=== PATIENT | female | born 1980 | race Caucasian/White ===

== ENCOUNTER 2022-03-20 12:42 | Emergency (ER) | payer MEDICAID, SELFPAY ==
--- NOTE | ~2022-03-20 | CT_ITS ---
EXAMINATION: CT ABDOMEN AND PELVIS WITHOUT CONTRAST CLINICAL INFORMATION: Left lower quadrant abdominal pain COMPARISON: None. TECHNIQUE: Multidetector volumetric imaging was performed from the lung bases through the pubic symphysis. Sagittal and coronal reformatted images were obtained on the technologist workstation. This CT examination was performed using dose optimization techniques as appropriate, variously including the following: *Automated exposure control *Adjustment of mA and/or kV according to patient size (this includes techniques or standardized protocols for targeted exams where dose is matched to indication/reason for exam; i.e. extremities or head) *Use of iterative reconstruction technique FINDINGS: The lack of intravenous contrast limits evaluation of the solid visceral organs including the liver, spleen, pancreas, and kidneys. LUNG BASES: The visualized lung bases are unremarkable. LIVER, GALLBLADDER, AND BILIARY TREE: Limited non-contrast evaluation is normal. 8mm likely cyst in the right lobe of liver image 11/84. Nonspecific 7 mm low-density lesion in the right lobe of liver image 114/697. Normal liver size and contour. No gross biliary ductal dilation. The gallbladder is unremarkable with no evidence of radiopaque gallstones, gallbladder wall thickening, or obvious pericholecystic inflammatory changes. PANCREAS: Limited non-contrast evaluation is normal. No teddy-pancreatic fluid. SPLEEN: Limited non-contrast evaluation is normal. ADRENAL GLANDS: Normal; no adrenal mass. KIDNEYS AND URETERS: Limited non-contrast evaluation is normal. No hydronephrosis, hydroureter, or calculi seen. No perinephric stranding. GASTROINTESTINAL TRACT: Stomach and small bowel are nondilated. The appendix is not seen but there are no right lower quadrant inflammatory changes. Scattered colonic diverticulosis. No evidence of colitis or diverticulitis. ABDOMINAL WALL: Small fat-containing umbilical hernia. LYMPH NODES: No pathologically enlarged lymph nodes in the abdomen or pelvis. VASCULAR: Normal caliber abdominal aorta. BLADDER: Unremarkable. PELVIC VISCERA: Normal noncontrast appearance of the uterus and ovaries. OSSEOUS STRUCTURES: No acute or suspicious osseous abnormalities. CT/CT abdomen pelvis wo con IMPRESSION: No acute CT findings. No evidence of colitis or diverticulitis. No evidence of obstructive uropathy. Nonspecific subcentimeter low-density lesions in the liver. In the absence of a history of known primary malignancy or hepatic risk factors/liver disease, typically no follow-up is recommended.
[2022-03-20 14:48] VITALS: BP 128/75; PULSE 70; RESP 16; TEMP 37.1; O2SAT 100; BMI 27.0
[2022-03-20 15:05] LABS: MANUAL DIFF FLAG NO
[2022-03-20 15:06] LABS: Basophils Percent Auto 0.3 % (0-2); Eosinophils Percent Auto 0.4 % (0-4); Hematocrit 39.4 % (37.0-47.0); Hemoglobin 12.9 g/dl (12.0-16.0); Imm Gran Abs Auto 0.01 X10*3/uL (0.00-0.03); Imm Gran Pct Auto 0.1 % (0.0-0.4); Lymphocytes Absolute Auto 1.4 X10*3/uL (1.2-4.9); Lymphocytes Percent Auto 21.2 % (20-40); Mean Corpuscular HGB Conc 32.7 g/dl (31.0-35.0); Mean Corpuscular Hemoglobin 28.3 pg (27.0-33.0); Mean Corpuscular Volume 86.4 fL (80.0-98.0); Mean Platelet Volume 9.2 fL (9.4-12.3); Monocytes Absolute Auto 0.4 X10*3/uL (0.1-1.2); Monocytes Percent Auto 5.2 % (2-11); Neutrophils Absolute Auto 4.9 x10*3/uL (2.0-8.3); Neutrophils Percent Auto 72.8 % (45-73); Platelet Count 255 X10*3/uL (160-400); Red Blood Count 4.56 X10*6/uL (4.20-5.50); Red Cell Distribution Width 13.4 % (11.0-16.0); White Blood Count 6.7 X10*3/uL (4.8-10.8)
[2022-03-20 15:25] LABS: Alanine Aminotransferase 11 U/L (0-31); Albumin Level 4.3 g/dL (3.5-5.0); Alkaline Phosphatase 51 U/L (39-117); Anion Gap 11 (12-20); Aspartate Amino Transferase 15 U/L (5-31); Bilirubin Direct 0.2 mg/dL (0.0-0.5); Bilirubin Total 0.6 mg/dL (0.0-1.0); Blood Urea Nitrogen 10 mg/dL (9-16); Calcium 9.2 mg/dL (8.4-10.2); Carbon Dioxide 25 mmol/L (22-29); Chloride 108 mmol/L (96-108); Creatinine Clr Calc Pharmacy 98.5; Estimated Glomerular Filt Rate > 60; Glucose Random 89 mg/dL (60-115); Lipase 15 U/L (8-78); Sodium 140 mmol/L (135-145); Total Protein 7.2 g/dL (6.5-8.0)
[2022-03-20 15:31] LABS: HCG Quantitative < 2 mIU/mL
--- NOTE | 2022-03-20 17:18 | ED_ITS ---
HPI - Abdominal Pain General Chief Complaint: Abdominal Pain Stated Complaint: abd pain Time Seen by Provider: 03/20/22 14:47 Source: patient Mode of arrival: ambulatory Limitations: no limitations History of Present Illness HPI narrative: 41-year-old female presents with nausea, vomiting, and left lower quadrant a bdominal pain for the past 3 days. Does not report to be constipated, or have had any fevers or chills. States that the pain started 1st and then the nausea and vomiting. She does not report any abnormal vaginal bleeding or discharge, denies dysuria, and flank pain. MD elicited complaint: abdominal pain Pertinent past history: none Onset (ago): day(s) (3) Pain Consistency: constant Location: LLQ Severity: moderate Pain scale (0-10): 7 Quality: stabbing and aching Radiation: none Migration to: no migration Exacerbating factors: bowel movement and movement Relieving factors: nothing Associated symptoms: nausea and vomiting Related Data Allergies Allergy/AdvReac Type Severity Reaction Status Date / Time No Known Allergies Allergy Unverified 06/03/20 15:56 Review of Systems Review of Systems Constitutional: No Fever, No Chills ENT/Mouth: No Ear Pain, No Hoarseness, No sore throat Eyes: No Eye Pain, No Swelling, No Redness, No Foreign Body Cardiovascular: No Chest Pain, No SOB Respiratory: No Cough, No Dyspnea Gastrointestinal: Phos Nausea, positive Vomiting, No Diarrhea, positive right lower quadrant abdominal Pain Genitourinary: No Dysuria, No Hematuria Musculoskeletal: No joint pain, No Myalgias, No Joint Swelling Skin: No Skin lacerations, No rash Neuro: No Weakness, No Numbness, No Paresthesias, No Loss of Consciousness, No Dizziness, No Headache Psych: No Anxiety/Panic, No Depression Heme/Lymph: no easy bruising, no Lymphadenopathy Endocrine: No Polyuria, No Polydipsia Yes all other systems are reviewed and are negative [facility] Past Medical History Attestation statement: The following information was validated with the patient. Source: old records reviewed Social History Social History Advance Directives: No Advance Directives Information Provided: No Physical Exam ED Vital Signs: Vital Signs - 24 hr 03/20/22 14:48 03/20/22 17:22 03/20/22 17:48 Temperature 98.8 F 98.2 F Pulse Rate 70 66 72 Respiratory Rate 16 16 16 Blood Pressure 128/75 133/71 128/63 Pulse Oximetry 100 100 100 Oxygen Delivery Method Room Air Room Air Room Air BMI result Body Mass Index 27.0 Appearance: Alert. Oriented X3. Moderate distress. Eyes: Pupils equal, round and reactive to light. Sclera nonicteric. ENT: Pharynx normal. Neck: Normal inspection. Neck supple. CVS: Normal heart rate and rhythm. Pulses normal. Respiratory: No respiratory distress. Breath sounds normal. Abdomen: Soft and left lower quadrant tenderness, no rebound or rigidity. Skin: Skin warm and dry. Normal skin color. Normal skin turgor. Extremities: No lower extremity edema. Gait well-balanced well coordinated. Neuro: No motor deficit. No sensory deficit. Cranial nerves 2-12 intact. Course Course Course Narrative: 41-year-old female presents for 3 days of abdominal pain followed by nausea and vomiting. Has a history of appendectomy. Does not report constipation, fevers or chills. Does have some tenderness to the left lower quadrant on palpation without rigidity or rebound. Afebrile, appears nontoxic. Lab values are unremarkable. Will order CT scan of abdomen pelvis. CT scan abdomen pelvis negative for acute findings. Incidental finding of liver low-density lesion. Patient does understand that she must follow-up with [facility] physician regarding this finding. Patient verbalized understanding of and agrees to plan of care discharge home. Verbalized understanding of signs and symptoms indicating need for emergent intervention. MDM - Abdominal Pain Differential Diagnosis Differential diagnosis: Likely abdominal pain, bowel perforation, calculus of kidney, constipation, diverticulitis, ovarian cyst and pancreatitis Medical Records Attestation: I reviewed the patient's medical records. Lab Data Attestation: I reviewed the patient's lab results. Result diagrams: 03/20/22 15:00 03/20/22 15:00 Labs: Lab Results 03/20/22 03/20/22 03/20/22 Range/Units 15:00 15:00 17:40 WBC 6.7 (4.8-10.8) X10*3/uL RBC 4.56 (4.20-5.50) X10*6/uL Hgb 12.9 (12.0-16.0) g/dl Hct 39.4 (37.0-47.0) % MCV 86.4 (80.0-98.0) fL MCH 28.3 (27.0-33.0) pg MCHC 32.7 (31.0-35.0) g/dl RDW 13.4 (11.0-16.0) % Plt Count 255 (160-400) X10*3/uL MPV 9.2 L (9.4-12.3) fL Immature Gran % (Auto) 0.1 (0.0-0.4) % Neut % (Auto) 72.8 (45-73) % Lymph % (Auto) 21.2 (20-40) % [place] % (Auto) 5.2 (2-11) % Eos % (Auto) 0.4 (0-4) % Baso % (Auto) 0.3 (0-2) % Lymph # (Auto) 1.4 (1.2-4.9) X10*3/uL [place] # (Auto) 0.4 (0.1-1.2) X10*3/uL Eos # (Auto) 0.0 (0.0-0.4) X10*3/uL Baso # (Auto) 0.0 (0.0-0.2) X10*3/uL Abs Immat Gran (auto) 0.01 (0.00-0.03) X10*3/uL Absolute Neuts (auto) 4.9 (2.0-8.3) x10*3/uL Absolute Nucleated RBC 0.000 (0.0-0.012) X10*3/uL Nucleated RBC % (auto) 0.0 (0.0-0.2) /100WBC Sodium 140 (135-145) mmol/L Potassium 4.0 (3.3-5.1) mmol/L Chloride 108 (96-108) mmol/L Carbon Dioxide 25 (22-29) mmol/L Anion Gap 11 L (12-20) BUN 10 (9-16) mg/dL Creatinine 0.79 (0.5-1.4) mg/dL Estim Creat Clear Calc 98.5 Estimated GFR > 60 Random Glucose 89 (60-115) mg/dL Calcium 9.2 (8.4-10.2) mg/dL Total Bilirubin 0.6 (0.0-1.0) mg/dL Direct Bilirubin 0.2 (0.0-0.5) mg/dL AST 15 (5-31) U/L ALT 11 (0-31) U/L Alkaline Phosphatase 51 (39-117) U/L Total Protein 7.2 (6.5-8.0) g/dL Albumin 4.3 (3.5-5.0) g/dL Lipase 15 (8-78) U/L Beta HCG, Quant < 2 mIU/mL Urine Color YELLOW Urine Appearance CLEAR Urine pH 6.0 (5.0-8.0) Ur Specific [place] >= 1.030 H (1.005-1.025) Urine Protein NEG (NEG-TRACE) MG/DL Urine Glucose (UA) NEG (NEG) MG/DL Urine Ketones >=80 (NEG) MG/DL Urine Blood NEG (NEG) Urine Nitrite NEG (NEG) Ur Leukocyte Esterase NEG (NEG) Imaging Data CT abdomen pelvis: Attestation: I personally reviewed and interpreted this imaging study as follows: Radiologist's impression: EXAMINATION: CT ABDOMEN AND PELVIS WITHOUT CONTRAST? CLINICAL INFORMATION: Left lower quadrant abdominal pain COMPARISON: None.? TECHNIQUE: Multidetector volumetric imaging was performed from the lung bases through the pubic symphysis.? Sagittal and coronal reformatted images were obtained on the technologist workstation. This CT examination was performed using dose optimization techniques as appropriate, variously including the following: *Automated exposure control *Adjustment of mA and/or kV according to patient size (this includes techniques or standardized protocols for targeted exams where dose is matched to indication/reason for exam; i.e. extremities or head) *Use of iterative reconstruction technique FINDINGS: The lack of intravenous contrast limits evaluation of the solid visceral organs including the liver, spleen, pancreas, and kidneys. LUNG BASES: The visualized lung bases are unremarkable.? LIVER, GALLBLADDER, AND BILIARY TREE: Limited non-contrast evaluation is normal. 8mm likely cyst in the right lobe of liver image 11/84. Nonspecific 7 mm low-density lesion in the right lobe of liver image 114/697. Normal liver size and contour.? No gross biliary ductal dilation. The gallbladder is unremarkable with no evidence of radiopaque gallstones, gallbladder wall thickening, or obvious pericholecystic inflammatory changes.? PANCREAS: Limited non-contrast evaluation is normal.? No teddy-pancreatic fluid.? SPLEEN: Limited non-contrast evaluation is normal. ? ADRENAL GLANDS: Normal; no adrenal mass.? KIDNEYS AND URETERS: Limited non-contrast evaluation is normal. No hydronephrosis, hydroureter, or calculi seen. No perinephric stranding. ? GASTROINTESTINAL TRACT: Stomach and small bowel are nondilated. The appendix is not seen but there are no right lower quadrant inflammatory changes. Scattered colonic diverticulosis. No evidence of colitis or diverticulitis.? ABDOMINAL WALL: Small fat-containing umbilical hernia.? LYMPH NODES: No pathologically enlarged lymph nodes in the abdomen or pelvis. VASCULAR: Normal caliber abdominal aorta. BLADDER: Unremarkable.? PELVIC VISCERA: Normal noncontrast appearance of the uterus and ovaries.? OSSEOUS STRUCTURES: No acute or suspicious osseous abnormalities.? CT/CT abdomen pelvis wo con IMPRESSION: No acute CT findings. No evidence of colitis or diverticulitis. No evidence of obstructive uropathy.? ? Nonspecific subcentimeter low-density lesions in the liver. In the absence of a history of known primary malignancy or hepatic risk factors/liver disease, typically no follow-up is recommended. Discharge Plan Discharge Clinical Impression: Abdominal pain Patient Disposition: Home, Self-Care Instructions: Abdominal Pain (ED) Additional Instructions: You were evaluated for left lower quadrant abdominal pain. CT scan of abdomen pelvis is negative for acute findings requiring emergent intervention. Incidental findings on the CT is a very small low density area in the liver. This finding is benign but needs follow-up in the future. Your lab values were normal. Your test is negative. Follow-up with primary care physician as needed Thank you for choosing this emergency department for evaluation. Please follow-up with primary care physician as needed. Return to the emergency department for any new, concerning, or worsening symptoms. Interventions: ED Discharge Assessment Last Done: 03/20/22 19:33 Discharge Date/Time: 03/20/22 19:34
[2022-03-20 17:22] VITALS: BP 133/71; PULSE 66; RESP 16; TEMP 36.8; O2SAT 100
[2022-03-20 17:48] VITALS: BP 128/63; PULSE 72; RESP 16; O2SAT 100
[2022-03-20 17:54] LABS: Appearance Urine CLEAR; Color Urine YELLOW; Glucose Urine UA NEG (NEG); Leukocyte Esterase Urine NEG (NEG); Nitrite Urine NEG (NEG); Specific Gravity - Urine >= 1.030 (1.005-1.025); Urine Blood NEG (NEG); Urine Ketones >=80 MG/DL (NEG); Urine Protein NEG (NEG-TRACE)
== END 2022-03-20 19:34 | disposition home or self-care (01) ==
PROVIDERS: Emergency Medicine; Emergency Provider Internal Medicine
DX: R10.32 Left lower quadrant pain (principal); R11.2 Nausea with vomiting, unspecified
CPT/HCPCS: 36415; 74176; 80048; 80076; 81003; 83690; 84702; 85025; 99284

== ENCOUNTER 2023-05-03 08:51 | Outpatient (AMB) | payer BC, MEDICAID, SELFPAY ==
[2023-05-03 09:04] VITALS: BP 118/76; PULSE 88; O2SAT 98; BMI 25.7
--- NOTE | 2023-05-03 09:04 | MHC.PC.OV ---
Vital Signs 05/03/23 09:04 Height 5 ft 6 in Weight 159 lb BMI 25.7 BP 118/76 Blood Pressure Location Lt brachial Position Sitting Pulse 88 Pulse Source Pulse Oximeter Pulse Oximetry (%) 98 Oxygen Delivery Method Room Air Intake Visit Reasons: New patient-requesting physical Allergies No Known Allergies Allergy (Verified 05/03/23 09:15) Medication List - Last Reconciled 05/03/23 by MAXIMILIAN Etienne No Known Home Meds Tobacco use date assessed: 05/03/23 Dental Screening Dental Screen Date: 05/03/23 Did you have a dental visit in the last 12 months?: No Did you have a dental problem in the last 6 months where you did not have access to dental care?: No Was dental information given to patient?: No HPI HPI Comments History of Present Illness Details 42-year-old female new patient presents today to establish care. Past medical history significant for asthma. Patient reports does not require use of albuterol inhaler frequently, typically only uses it when she has viral infection. Refill sent on albuterol inhaler. Patient denies chest pain, palpitations, shortness of breath and syncope. Patient scoring positive on PHQ-9 and richardson 7 for mild anxiety and depression. Patient not currently following with counselor, declined the need for counselor at this time. Denies SI/HI Denies any acute concerns. Mammogram ordered. Eye exam recommended unknown when last papsmear, referral entered to obgyn. TDAP: Given in office today. [facility] Surgical History (Updated 05/03/23 @ 09:17 by MAXIMILIAN Etienne) H/O right inguinal hernia repair History of appendectomy Family History (Updated 05/03/23 @ 09:17 by MAXIMILIAN Etienne) Mother Diabetes Seizure disorder Son No problems noted. Son Autism Daughter No problems noted. Brother No problems noted. Social History (Updated 05/03/23 @ 09:18 by MAXIMILIAN Etienne) Household Members: Family Housing: Apartment Alcohol intake: current Alcohol intake frequency: a few times a week Alcohol type: wine Patient Tobacco Use Status: Never used Tobacco e-Cigarette/Vaping Use: Never Used Second Hand Smoke Exposure: No Current occupational status: employed Cognitive needs: No Hearing needs: No Vision needs: No Female Reproductive History Menstrual Age of Menarche: 13 Questionnaire PHQ-9 Over the last 2 weeks, how often have you been bothered by any of the following problems? 1. Little interest or pleasure in doing things: more than half the days 2. Feeling down, depressed, or hopeless: more than half the days 3. Trouble falling or staying asleep, or sleeping too much: more than half the days 4. Feeling tired or having little energy: more than half the days 5. Poor appetite or overeating: not at all 6. Feeling bad about yourself - or that you are a failure or have let yourself or your family down: more than half the days 7. Trouble concentrating on things, such as reading the newspaper or watching television: not at all 8. Moving or speaking so slowly that other people could have noticed. Or the opposite - being so fidgety or restless that you have been moving around a lot more than usual: not at all 9. Thoughts that you would be better off or of hurting yourself in some way: not at all Total score: 10 Depression Screening Interpretation: Positive [id number] - PHQ-9 Billing: Yes Source: Developed by Drs. Trevin Winchester, Rani Marcial, Galdino Hughes and colleagues, with an educational naina from [employer]. Thrive Questionnaire Date Thrive assessed: 05/03/23 I am a: Patient What is your living situation today?: I have a steady place to live Within the past 12 months, did the food you bought not last and you didn't have the money to get more?: Never true Within the past 12 months, did you worry whether your food would run out before you got money to buy more?: Never true Do you have trouble paying for medicines?: No Do you have trouble getting transportation to medical appointments?: No Do you have trouble paying your heating and electricity bill?: No Do you have trouble taking care of your child, family member or friend?: No Do you have trouble with day-to-day activities such as bathing, preparing meals, shopping, managing finances, etc.?: No Are you currently unemployed and looking for a job?: No Are you interested in more education?: No Currently or been in a relationship where the following occur: no concerns reported AUDIT C Alcohol Use Questionnaire (AUDIT-C) 1. How often do you have a drink containing alcohol?: 2-3 times a week 2. How many drinks containing alcohol do you have on a typical day when you are drinking?: 1 or 2 3. How often do you have six or more drinks on one occasion?: Never Total Score: 3 RICHARDSON-7 AMB Questionnaire RICHARDSON-7 Date RICHARDSON - 7 assessed: 05/03/23 Feeling nervous, anxious, or on edge: 1 = Several days Not being able to stop or control worryin = Several days Worrying too much about different things: 1 = Several days Trouble relaxin = Several days Being so restless that it is hard to sit still: 1 = Several days Becoming easily annoyed or irritable: 1 = Several days Feeling afraid as if something awful might happen: 1 = Several days Total RICHARDSON-7 score (0-4 normal; 5-9 mild; 10-14 moderate; 15-21 severe): 7 Source: Developed by Drs. Trevin Winchester, Rani Marcial, Galdino Hughes and colleagues, with an educational naina from [employer]. RICHARDSON-7 Assessment Billing RICHARDSON-7 Assessment Tool: RICHARDSON-7 Assessment [id number] Review of Systems Const Denies chills, Denies fatigue, Denies fever(s) and Denies poor appetite Eyes Denies no additional complaints ENT Reports Normal hearing present Card Denies chest pain, Denies syncope, Denies rapid heart rate and Denies dyspnea Resp Denies cough and Denies dyspnea GI Denies change in stool character, Denies constipation, Denies diarrhea, Denies nausea and Denies vomiting Denies urinary frequency, Denies dysuria and Denies urinary urgency Neuro Reports Normal hearing present, Denies confusion and Denies syncope Psych Denies confusion Endo Denies fatigue Physical exam (Primary Care) Vital Signs: Last Vital Signs Pulse 88 05/03/23 09:04 BP 118/76 05/03/23 09:04 Pulse Ox 98 05/03/23 09:04 Oxygen Delivery Method Room Air 05/03/23 09:04 BMI result Body Mass Index 25.7 Tobacco/Smoking Status: Tobacco use Status Tobacco use date assessed 05/03/23 05/03/23 09:10 Patient Tobacco Use Status Never used Tobacco 05/03/23 09:18 e-Cigarette/Vaping Use Never Used 05/03/23 09:18 PHQ-9: PHQ-9 Score PHQ-9: Total score 10 05/03/23 09:47 Depression Screening Interpretation: Positive Thrive Assessment: Date of Thrive Assessment Date Thrive assessed 05/03/23 05/03/23 09:10 Currently or been in a relationship where the following occur: no concerns reported Const General: No confusion Orientation/consciousness: No confusion HENMT Head: Yes normocephalic and Yes atraumatic Ears: external ears normal and TM's normal bilaterally General nose exam: Normal external nose present and Normal nasal mucous membranes and turbinates present Face and sinus: Yes normal facial exam and Yes sinuses nontender Mouth: moist mucous membranes Throat: Yes tonsils normal Eyes Conjunctivae: conjunctivae normal Sclerae: sclerae normal Pupils: Equal, round and reactive pupils present and Pupils normal by confrontation EOM: EOMs intact bilaterally Direct Ophthalmoscopy: normal light reflex Neck Neck: Yes no lymphadenopathy and Yes supple Thyroid: Thyroid normal Chest Chest palpation & inspection: normal inspection of the chest Resp Effort & Inspection: normal respiratory effort Auscultation: clear to auscultation bilaterally, no crackles, no rhonchi and no wheezes Cardio Rate: regular rate Rhythm: regular rhythm Peripheral pulses: radial pulses present and dorsalis pedis present GI Inspection: Yes normal to inspection Palpation (GI): Soft to palpation, nontender and No hepatosplenomegaly present Auscultation: normoactive bowel sounds Skin General skin exam: no rashes or lesions noted Neuro General: No confusion Cranial nerves: Yes Equal, round and reactive pupils present and Yes Normal hearing present Cognition (Neuro): normal cognition Gait exam (Neuro): Normal gait present Motor exam (neuro): 5/5 motor strength present throughout Deep tendon reflexes (DTR's): Right brachioradialis reflex intensity grade: 2+, Left brachioradialis reflex intensity grade: 2+, Right patellar reflex intensity grade: 2+ and Left patellar reflex intensity grade: 2+ Extrem General: No edema Immunizations Boostrix Tdap Performing Provider: MAXIMILIAN Etienne Administered by: Ada Jang RN on 05/03/23 09:52 Dose Route Admin Location Lot Number Expiration Date [place] [employer] Install[employer] Supervisor 0.5 mL IM Left Deltoid [id number] 06/27/25 [id number] [employer] VIS Given Date VIS Provided VIS Publication Date 05/03/23 Single Vaccine 21 Eligibility Eligibility Date Funding Source Not [facility] Eligible 05/03/23 Private Assessment and Plan Assessment & Plan (1) Asthma: Code(s): J45.909 - Unspecified asthma, uncomplicated Plan: Continue to use albuterol as needed. (2) Physical exam, annual: Code(s): Z00.00 - Encounter for general adult medical examination without abnormal findings (3) Anxiety and depression: Code(s): F41.9 - Anxiety disorder, unspecified; F32.A - Depression, unspecified Plan: Declined counselor referral. Plan Follow up in 1 year. Orders: Orders Comprehensive [place]. Panel Fast Today Z13.1 - Encounter for screening for diabetes mellitus Lipid Panel Today Z13.220 - Encounter for screening for lipoid disorders TSH reflex Free T4 Today Z13.29 - Encounter for screening for other suspected endocrine disorder Vitamin D 25-OH Total Today Z13.21 - Encounter for screening for nutritional disorder Complete Blood Count Auto Diff Today Z13.0 - Encounter for screening for diseases of the blood and blood-forming organs and certain disorders involving the immune mechanism MM screening mammo BI Today Z12.31 - Encounter for screening mammogram for malignant neoplasm of breast T Spot TB Today Z11.1 - Encounter for screening for respiratory tuberculosis TDaP Immunization Today Z23 - Encounter for immunization Referrals [facility] Referral Z12.4 - Encounter for screening for malignant neoplasm of cervix Medications: New albuterol sulfate 90 mcg/actuation 2 puffs inhalation Q4-6H PRN 6.7 grams 0RF shortness of breath or wheezing J45.909 - Unspecified asthma, uncomplicated Coding Level of Care Code New Pt Prev Care 40-64y(26962) Diagnoses Asthma J45.909 Physical exam, annual Z00.00 Anxiety and depression F41.9; F32.A Additional Codes RICHARDSON-7 Assessment Billing - RICHARDSON-7 Assessment Tool: RICHARDSON-7 Assessment [id number] ([id number])
== END 2023-05-03 09:44 | disposition home or self-care (01) ==
PROVIDERS: Visit Provider Nurse Practitioner Family
DX: Z00.00 Encounter for general adult medical examination without abnormal findings (principal); J45.909 Unspecified asthma, uncomplicated; F41.9 Anxiety disorder, unspecified; F32.A Depression, unspecified
CPT/HCPCS: 90471; 90715; 99386

== ENCOUNTER 2023-05-04 07:13 | Outpatient (REF) | payer BC, MEDICAID, SELFPAY ==
[2023-05-04 07:22] LABS: MANUAL DIFF FLAG NO
[2023-05-04 08:11] LABS: Basophils Percent Auto 0.6 % (0-2); Eosinophils Absolute Auto 0.1 X10*3/uL (0.0-0.4); Eosinophils Percent Auto 1.7 % (0-4); Hematocrit 37.1 % (37.0-47.0); Imm Gran Abs Auto 0.02 X10*3/uL (0.00-0.03); Imm Gran Pct Auto 0.3 % (0.0-0.4); Lymphocytes Absolute Auto 2.3 X10*3/uL (1.2-4.9); Lymphocytes Percent Auto 32.1 % (20-40); Mean Corpuscular HGB Conc 32.3 g/dl (31.0-35.0); Mean Corpuscular Hemoglobin 26.8 pg (27.0-33.0); Mean Corpuscular Volume 82.8 fL (80.0-98.0); Mean Platelet Volume 9.8 fL (9.4-12.3); Monocytes Absolute Auto 0.5 X10*3/uL (0.1-1.2); Monocytes Percent Auto 6.4 % (2-11); Neutrophils Absolute Auto 4.2 x10*3/uL (2.0-8.3); Neutrophils Percent Auto 58.9 % (45-73); Platelet Count 274 X10*3/uL (160-400); Red Blood Count 4.48 X10*6/uL (4.20-5.50); White Blood Count 7.1 X10*3/uL (4.8-10.8)
[2023-05-04 08:47] LABS: Alanine Aminotransferase 8 U/L (0-31); Albumin Level 4.1 g/dL (3.5-5.0); Alkaline Phosphatase 49 U/L (39-117); Anion Gap 11 (12-20); Aspartate Amino Transferase 11 U/L (5-31); Bilirubin Total 0.5 mg/dL (0.0-1.0); Blood Urea Nitrogen 13 mg/dL (9-16); Calcium 9.6 mg/dL (8.4-10.2); Carbon Dioxide 23 mmol/L (22-29); Chloride 110 mmol/L (96-108); Cholesterol 192 mg/dL; Estimated Glomerular Filt Rate > 60; Glucose Fasting 91 mg/dL (60-99); HDL Cholesterol 54 mg/dL; LDL Cholesterol Calculated 120 mg/dl; Potassium 3.9 mmol/L (3.3-5.1); Sodium 140 mmol/L (135-145); Total Protein 7.2 g/dL (6.5-8.0); Triglycerides 90 mg/dL
[2023-05-04 09:05] LABS: TSH reflex Free T4 1.49 uIU/mL (0.32-4.0); Vitamin D 25-OH Total 14.6 ng/mL (>30)
[2023-05-07 16:48] LABS: TS Negative Control Passed; TS Panel A 0; TS Panel B 0; TS Positive Control Passed; TSpotTB Negative (Negative)
== END 2023-05-04 07:14 | disposition home or self-care (01) ==
LOC: HO.LAB 07:13
PROVIDERS: PCP Nurse Practitioner Family; Visit Provider Nurse Practitioner Family
DX: Z13.220 Encounter for screening for lipoid disorders (principal); Z13.29 Encounter for screening for other suspected endocrine disorder; Z13.21 Encounter for screening for nutritional disorder; Z13.0 Encounter for screening for diseases of the blood and blood-forming organs and certain disorders involving the immune mechanism; Z11.1 Encounter for screening for respiratory tuberculosis; F41.9 Anxiety disorder, unspecified; F32.A Depression, unspecified
CPT/HCPCS: 36415; 80053; 80061; 82306; 84443; 85025; 86481

== ENCOUNTER 2023-06-05 09:07 | Outpatient (REF) | payer BC, MEDICAID, SELFPAY ==
--- NOTE | ~2023-06-05 | MM_ITS ---
EXAMINATION: MM SCREENING DIGITAL BREAST TOMOSYNTHESIS, BILATERAL CLINICAL INFORMATION: Screening. Asymptomatic. COMPARISON: Mammography: This is a baseline study. TECHNIQUE: Digital breast tomosynthesis is performed in both the craniocaudal and mediolateral oblique views along with computer-aided detection (CAD). Synthesized 2D images are generated from the tomosynthesis. FINDINGS: The breasts are extremely dense, which lowers the sensitivity of mammography (ACR BI-RADS breast composition Category d). There are no abnormal calcifications or areas of architectural distortion. There are bilateral focal asymmetries. These manifests as dense macro nodularity in the 12:00 region of the left breast and most of the upper outer quadrant of the right breast. Additional imaging with diagnostic mammography and ultrasound is advised. Faint milk of calcium is present in the superior aspect of the right breast. This is benign. MM/MM tomosynthesis screening BI IMPRESSION: Bilateral focal asymmetries warranting additional mammographic and targeted sonographic evaluation. ASSESSMENT: BI-RADS BI-RADS 0 - Incomplete: Needs additional Imaging. RECOMMENDATION: 1. Additional views of both breasts. 2. Targeted ultrasound if warranted after review of the additional views. 3. Radiology department staff will contact the patient for additional imaging. Additional Imaging required This examination should not preclude the clinical evaluation of a suspicious palpable abnormality. This patient's information was entered into a reminder system with a target due date for their next mammogram.
== END 2023-06-05 09:08 | disposition home or self-care (01) ==
LOC: HO.MAMMO 09:07
PROVIDERS: PCP Nurse Practitioner Family; Visit Provider Nurse Practitioner Family
DX: Z12.31 Encounter for screening mammogram for malignant neoplasm of breast (principal)
CPT/HCPCS: 77063; 77067

== ENCOUNTER → 2023-06-05 09:15 | Outpatient (BNV) | payer BC, MEDICAID, SELFPAY | PROVIDERS: PCP Nurse Practitioner Family; Visit Provider Radiology Diagnostic Radiology | DX: Z12.31 Encounter for screening mammogram for malignant neoplasm of breast (principal) | CPT/HCPCS: 77063; 77067 ==

== ENCOUNTER 2023-07-06 10:20 | Outpatient (REF) | payer BC, MEDICAID, SELFPAY ==
--- NOTE | ~2023-07-06 | US_ITS ---
EXAMINATION: MM DIAGNOSTIC DIGITAL BREAST TOMOSYNTHESIS, BILATERAL US BREAST LIMITED, RIGHT MAMMOGRAPHY: CLINICAL INFORMATION: Callback for bilateral focal asymmetries upper outer quadrant both breasts from baseline screening examination. COMPARISON: Mammography: 06/05/2023 Baseline exam TECHNIQUE: Digital breast tomosynthesis is performed utilizing spot compression 3-D views in the bilateral craniocaudal and mediolateral oblique projections . FINDINGS: The breasts are extremely dense, which lowers the sensitivity of mammography (ACR BI-RADS breast composition Category d). There is a circumscribed mass in the mid inferior right CC projection, measuring up to 3.0 cm. This may represent a cyst. There are other small circumscribed mass is present in the lateral right breast parenchyma. No suspicious abnormality is present in the right breast. No suspicious calcifications or regions of architectural distortion in either breast. ULTRASOUND: CLINICAL INFORMATION: Circumscribed mass seen right breast central aspect. COMPARISON: None TECHNIQUE: Targeted sonographic right breast evaluation was performed using a high frequency linear transducer. Selected archived documentation. FINDINGS: RIGHT BREAST: There is a mixture of fatty and fibroglandular tissue. No suspicious mass is seen. There is no pathologic acoustic shadowing. There is a large simple cyst in the 9:00 axis right breast, 4 cm from the nipple, measuring 3.0 x 2.1 x 2.3 cm. A few additional smaller cysts were also identified US/US breast RT limited mamm only IMPRESSION: There are no findings suspicious for malignancy in either breast. Several benign cysts in the right breast as detailed. Recommend the patient resume annual screening mammography. OVERALL ASSESSMENT: Mammography: BI-RADS 2 - Benign Findings Ultrasound: BI-RADS 2 - Benign Findings RECOMMENDATION: 1 year F/U This patient's information was entered into a reminder system with a target due date for their next mammogram.
== END 2023-07-06 10:21 | disposition home or self-care (01) ==
LOC: HO.MAMMO 10:20
PROVIDERS: PCP Nurse Practitioner Family; Visit Provider Nurse Practitioner Family
DX: N64.89 Other specified disorders of breast (principal)
CPT/HCPCS: 76642; 77062; 77066

== ENCOUNTER → 2023-07-06 10:30 | Outpatient (BNV) | payer BC, MEDICAID, SELFPAY | PROVIDERS: PCP Nurse Practitioner Family; Visit Provider Radiology Diagnostic Radiology | DX: N64.89 Other specified disorders of breast (principal) | CPT/HCPCS: 76642; 77062; 77066 ==

== ENCOUNTER 2023-11-13 09:24 | Outpatient (AMB) | payer BC, MEDICAID, SELFPAY ==
--- NOTE | 2023-11-13 09:25 | MHC.OFFVIS ---
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 Previously she has [facility] and MD in [place]. Please her last Pap smear was probably sometime after her last child in 2012 she has never had an abnormal 1 she has been just paying attention to her calendar with a nap in terms of fertility awareness but isn't aware of signs of ovulation otherwise. Her youngest child is 10. She has no other health concerns she had her last mammogram in August. She states there were no concerns other than she had lumpy breasts and so they did an ultrasound. She does notice her periods are getting heavier over the years and cramp ear and more challenging she might be interested in doing something she is taken pills in the past but did not do well with them and also they tried to place an IUD a few times but she says her body rejected it.. PFSH Surgical History H/O right inguinal hernia repair History of appendectomy Family History Mother Diabetes Seizure disorder Son No problems noted. Son Autism Daughter No problems noted. Brother No problems noted. Social History Household Members: Family Housing: Apartment Alcohol intake: current Alcohol intake frequency: a few times a week Alcohol type: wine Patient Tobacco Use Status: Never used Tobacco e-Cigarette/Vaping Use: Never Used Second Hand Smoke Exposure: No Current occupational status: employed Cognitive needs: No Hearing needs: No Vision needs: No Female Reproductive History Menstrual Age of Menarche: 13 Duration of menses: 8-10 days Date of last menstrual period: 10/29/23 control method: none Total pregnancies: 5 Full term: 3 History of abnormal pap smear: No (previous pap unsure date ) Physical Exam Vital Signs: Last Vital Signs BP 122/70 11/13/23 09:32 BMI result Body Mass Index 25.7 Const General: healthy appearing, comfortable, no acute distress, well developed and alert Nutritional Appearance: average body habitus Orientation/consciousness: patient oriented x3 Limitations: no limitations HEENT Head: Yes normocephalic Neck Neck: Yes normal visual inspection Chest Chest palpation & inspection: normal inspection of the chest Breast/axilla inspection: normal inspection of the breasts and normal inspection of the axillae Breast/axilla palpation: normal palpation of the breasts and normal palpation of the axillae Resp Effort & Inspection: normal respiratory effort GI Inspection: Yes normal to inspection, No Abdominal wall edema and No distended Palpation (GI): Soft to palpation and nontender Other: .External exam within normal limits vagina pink and moist normal scant white discharge cervix multiparous long close thick mobile nontender uterus nontender midposition to anteverted adnexa nontender good tone with Kegel General: Yes bladder normal to palpation External Female Exam: normal external appearance and normal appearance of the urethra Speculum Exam - Vagina: normal appearance of the vagina, normal palpation and normal vaginal discharge Speculum Exam - Cervix: normal appearance of the cervix, normal palpation and nontender Bimanual exam- vagina & uterus: normal bimanual exam, normal palpation, uterine size normal, bladder normal to palpation, consistency normal, normal palpation, uterine mobility normal, uterine shape normal, No Cervical tenderness present, non-tender and no cervical motion tenderness Bimanual Exam- Adnexa, other: normal adnexae, no masses, normal and No adnexal tenderness Neuro General: patient oriented x3 Assessment & Plan Assessment & Plan (1) Well woman exam with routine gynecological exam: Code(s): Z01.419 - Encounter for gynecological examination (general) (routine) without abnormal findings (2) Cervical cancer screening: Code(s): Z12.4 - Encounter for screening for malignant neoplasm of cervix (3) Breast cancer screening: Comment: Getting regular mammograms last 1 in september 08 Code(s): Z12.39 - Encounter for other screening for malignant neoplasm of breast (4) control counseling: Code(s): Z30.09 - Encounter for other general counseling and advice on contraception (5) Dysmenorrhea treated with oral contraceptive: Code(s): N94.6 - Dysmenorrhea, unspecified; Z79.3 - half-way (current) use of hormonal contraceptives (6) History of menorrhagia: Code(s): Z87.42 - Personal history of other diseases of the female genital tract Plan -----Discussed in this visit the following: healthy balanced diet, regular and consistent exercise, getting recommended health screens, doing the best she can for her particular health concerns, kegel exercises, pap smear screening and followup recommendations, mammography screening and SBE, normal changes in cycles in her life stage--- .-I reviewed with the patient, all of the currently common used methods of control that are available, and what would help with her heavy periods, how they work in the body, how they are taken, common side effects, uncommon side effects, precautions, and contraindications. -Discussed also factors that influence their effectiveness and use, and womens satisfaction with the method. -Discussed how each are used, and drawbacks of each method as well. -Methods covered included: control pills, especially progestin only pills in her age group, fertility awareness. She decided on progestin only pills and will try them starting with the next menses I recommend she start them towards the beginning of the period. On 1 of the heavy days which for her is the 1st 4 days of a 6-8 days. And we will see her in 3 months and see how she is doing the next best option would be the Mirena IU S to help with the severity of the menses both are control methods as well. Orders: Orders CT NG by PCR Today Z01.419 - Encounter for gynecological examination (general) (routine) without abnormal findings Pap Smear Today Z01.419 - Encounter for gynecological examination (general) (routine) without abnormal findings Bacterial Vaginosis Panel Today Z20.2 - Contact with and (suspected) exposure to infections with a predominantly sexual mode of transmission Medications: New norethindrone (contraceptive) Start at the beginning of the next menses 0.35 mg PO DAILY 84 tabs 3RF Coding Level of Care Code Est Pt Level 3 (08173) Diagnoses Well woman exam with routine gynecological exam Z01.419 Cervical cancer screening Z12.4 Breast cancer screening Z12.39 control counseling Z30.09 Dysmenorrhea treated with oral contraceptive N94.6; Z79.3 History of menorrhagia Z87.42
[2023-11-13 09:32] VITALS: BP 122/70; BMI 25.7
== END 2023-11-13 10:24 | disposition home or self-care (01) ==
LOC: HO.HWSM 09:25
PROVIDERS: PCP Nurse Practitioner Family; Visit Provider Advanced Practice Midwife
DX: Z01.419 Encounter for gynecological examination (general) (routine) without abnormal findings (principal); N94.6 Dysmenorrhea, unspecified; Z79.3 Long term (current) use of hormonal contraceptives; Z87.42 Personal history of other diseases of the female genital tract
CPT/HCPCS: 99386

== ENCOUNTER 2023-11-13 09:24 | Outpatient (REF) | payer BC, MEDICAID, SELFPAY ==
[2023-11-14 11:46] LABS: CT PCR NOT DETECTED (Not Detect.); NG PCR NOT DETECTED (Not Detect.)
[2023-11-14 15:27] LABS: BV Int Neg Control Negative (Negative); BV Int Pos Control Positive (Positive)
[2023-11-18 11:04] LABS: HPV mRNA E6/E7 rflx Not Detected (Not Detected)
== END 2023-11-13 09:25 | disposition home or self-care (01) ==
LOC: HO.LAB 09:24
PROVIDERS: PCP Nurse Practitioner Family; Visit Provider Advanced Practice Midwife
DX: Z01.419 Encounter for gynecological examination (general) (routine) without abnormal findings (principal); Z11.51 Encounter for screening for human papillomavirus (HPV); Z20.2 Contact with and (suspected) exposure to infections with a predominantly sexual mode of transmission; Z87.42 Personal history of other diseases of the female genital tract; Z79.3 Long term (current) use of hormonal contraceptives
CPT/HCPCS: 0353U; 87480; 87510; 87624; 87660; 88142

== ENCOUNTER 2024-04-22 09:21 | Emergency (ER) | payer BC, MEDICAID, SELFPAY ==
--- NOTE | ~2024-04-22 | XR_ITS ---
EXAMINATION: XR CHEST CLINICAL INFORMATION: Cough for 2 weeks. COMPARISON: 09/25/2012. TECHNIQUE: 3 views of the chest. FINDINGS: The lungs are well inflated. S-shaped thoracolumbar scoliosis. There is no gross pneumothorax. Heart size is normal. No pleural effusion. No new focal consolidation to suggest pneumonia. XR/XR chest 2V IMPRESSION: No evidence of pneumonia. This study was presented today, April 22, 2024, for interpretation. Stat results provided at this time as requested by referring provider.
--- NOTE | 2024-04-22 09:33 | ECG_ITS ---
Test Reason : chest tightness Blood Pressure : / mmHG Vent. Rate : 078 BPM Atrial Rate : 078 BPM P-R Int : 140 ms QRS Dur : 078 ms QT Int : 374 ms P-R-T Axes : 069 -21 028 degrees QTc Int : 426 ms Normal sinus rhythm Normal ECG When compared with ECG of 25-SEP-2012 13:23, No significant change was found Referred By: Generic ED Physician Electronically Signed By:MARK LANDAVERDE MD
[2024-04-22 10:06] VITALS: BP 124/75; PULSE 80; RESP 18; TEMP 36.8; O2SAT 100; BMI 26.9
--- NOTE | 2024-04-22 10:21 | ED_ITS ---
HPI - General Adult General Chief complaint: Upper Respiratory Symptoms Stated complaint: Chest tightness, SOB Time Seen by Provider: 04/22/24 10:21 Source: patient Mode of arrival: ambulatory Limitations: no limitations History of Present Illness ED Provider: el CERVANTES narrative: Patient is a 43-year-old female with history of asthma presenting to the emergency department with complaint of ongoing cough for the past two weeks. States for the first week cough was productive, then had progressed to a dry cough. Last night cough was again productive of sputum. Denies fevers. Denies other sick family members at home. Using inhalers with little relief. Denies chest pain or palpitations. MD complaint: productive cough Onset (ago): week(s) Treatments prior to arrival: other Related Data Previous Rx's ?Medication ?Instructions ?Recorded albuterol sulfate 90 mcg/actuation 2 puff inhalation Q4-6H PRN 05/03/23 aerosol inhaler shortness of breath or wheezing #6.7 grams norethindrone (contraceptive) 0.35 0.35 mg PO DAILY #84 tabs 11/13/23 mg tablet metronidazole 500 mg tablet 500 mg PO BID 7 days #14 tabs 11/16/23 azithromycin 250 mg tablet See Rx Instructions PO .COMPLEX #6 04/22/24 tabs benzonatate 100 mg capsule 100 mg PO TID PRN cough #14 caps 04/22/24 prednisone 20 mg tablet 40 mg (2 x 20 mg) PO DAILY #10 tabs 04/22/24 Allergies Allergy/AdvReac Type Severity Reaction Status Date / Time No Known Allergies Allergy Verified 04/22/24 10:11 Review of Systems Review of Systems: As per HPI. Yes all other systems are reviewed and are negative Constitutional: Constitutional: Reports as per HPI [facility] Past Medical History Surgical History H/O right inguinal hernia repair History of appendectomy Family History Family History Mother Diabetes Seizure disorder Son No problems noted. Son Autism Daughter No problems noted. Brother No problems noted. Social History Social History Household Members: Family Housing: Apartment Alcohol intake: current Alcohol intake frequency: a few times a week Alcohol type: wine Patient Tobacco Use Status: Never used Tobacco e-Cigarette/Vaping Use: Never Used Second Hand Smoke Exposure: No Advance Directives: No Advance Directives Information Provided: Yes Current occupational status: employed Cognitive needs: No Hearing needs: No Vision needs: No Physical Exam ED Vital Signs: Vital Signs - 24 hr 04/22/24 10:06 Temperature 98.3 F Pulse Rate 80 Respiratory Rate 18 Blood Pressure 124/75 Pulse Oximetry 100 Oxygen Delivery Method Room Air BMI result Body Mass Index 26.9 Vital signs have been reviewed and appear to be correct. Blood pressure normal. Heart rate normal. Respiratory rate normal. Temperature normal. Oxygen saturation normal. Const General: cooperative, healthy appearing and no acute distress Orientation/consciousness: oriented to person, oriented to place, oriented to time and patient oriented x3 Limitations: no limitations HENMT Head: Yes normocephalic and Yes atraumatic Ears: external ears normal General nose exam: Normal external nose present Face and sinus: Yes face symmetric Mouth: oropharynx normal and moist mucous membranes Throat: Yes uvula midline Eyes Pupils: Equal, round and reactive pupils present Neck Neck: Yes normal visual inspection and Yes supple Resp Effort & Inspection: normal respiratory effort and able to speak in complete sentences Auscultation: clear to auscultation bilaterally Cardio Rate: regular rate Rhythm: regular rhythm Heart sounds: S1 normal heart sound present and S2 normal heart sound present GI Palpation (GI): Soft to palpation and nontender Auscultation: normoactive bowel sounds General: Yes no CVA tenderness Back/Spine/Pelvis Back: no CVA tenderness Skin General skin exam: elasticity normal and turgor normal Neuro General: oriented to person, oriented to place, oriented to time, patient oriented x3, moves all extremities, no focal motor deficits and CN's II-XI intact bilaterally Cranial nerves: Yes Equal, round and reactive pupils present Cognition (Neuro): normal cognition Extrem General: Yes full ROM, Yes no pedal edema and Yes no calf tenderness Psych Mental Status: mental status grossly normal Affect: normal affect Thought process: Normal thought process present Medical Decision Making Medical Decision Making MDM Narrative: Patient is a 43-year-old female with history of asthma presenting to the emergency department with complaint of ongoing cough for the past two weeks. On exam patient is awake, A+Ox3, VS WNL, afebrile, normal neurological exam without focal deficits, physical exam findings as above. Given reported symptoms and physical exam findings, initial differential includes bronchitis, pneumonia, asthma exacerbation. X-ray chest notable for no evidence of pneumonia. My interpretation is in agreement with the radiologist's interpretation. Will treat for bronchitis with course of azithromycin, prednisone, benzonatate. Patient states she has adequate inhalers at home. Return precautions discussed. Patient verbalized understanding of and agreement with plan. Differential Diagnosis Differential Diagnoses: The differential diagnosis associated with the presentation includes as [facility] Independent Interpretation I performed an independent interpretation of an: Plain X-Ray Interpretation: No pneumonia on chest xray Radiology Impression Discussion of test interpretation with radiology: I have reviewed the radiologist's reading. Radiologist Impression: FINDINGS: The lungs are well inflated. S-shaped thoracolumbar scoliosis. There is no gross pneumothorax. Heart size is normal. No pleural effusion. No new focal consolidation to suggest pneumonia. XR/XR chest 2V IMPRESSION: No evidence of pneumonia. External Record Review External record reviewed: Inpatient record, Office record and Outpatient record Prescription Management I considered prescription management with: Antibiotic and Other Discharge Plan Discharge Clinical Impression: Bronchitis Patient Disposition: Home, Self-Care Instructions: Acute Bronchitis (ED) Additional Instructions: You were evaluated in the emergency department today for cough and shortness of breath. You are being treated for bronchitis with an antibiotic, please complete the full course as prescribed. You are also being prescribed a short course of steroids to decrease inflammation. You are being prescribed cough medicine which you can take every 8 hours, KEEP THIS OUT OF THE REACH OF CHILDREN. Please follow-up with your primary care provider this week. Return to the emergency department if you develop worsening shortness of breath, difficulty breathing, chest pain, fever not improved with Tylenol or ibuprofen, or any other concerning symptoms. Prescriptions: New azithromycin 250 mg tablet See Rx Instructions .ROUTE .COMPLEX Qty: 6 0RF Rx Instructions: For 250 mg dose pack: take 500 mg today (day 1), then 250 mg for 4 days (days 2-5) prednisone 20 mg tablet 40 mg PO DAILY Qty: 10 0RF benzonatate 100 mg capsule 100 mg PO TID PRN (Reason: cough) Qty: 14 0RF No Action metronidazole 500 mg tablet 500 mg PO BID 7 Days Qty: 14 0RF albuterol sulfate 90 mcg/actuation HFA aerosol inhaler 2 puff inhalation Q4-6H PRN (Reason: shortness of breath or wheezing) Qty: 6.7 0RF norethindrone (contraceptive) 0.35 mg tablet 0.35 mg PO DAILY Qty: 84 3RF Rx Instructions: Start at the beginning of the next menses Stand Alone Forms: Work/School Release Print Language: Chilean
--- NOTE | 2024-04-22 10:40 | PC.NURSE ---
pt a&ox3, awaiting results of xrays, pt vss, rr equal and non labored, call bustos within reach, will continue to monitor
[2024-04-22 14:43] VITALS: BP 123/79; PULSE 73; RESP 14; TEMP 36.8; O2SAT 100
== END 2024-04-22 14:43 | disposition home or self-care (01) ==
PROVIDERS: Emergency Provider Emergency Medicine
DX: J40 Bronchitis, not specified as acute or chronic (principal); R05.9 Cough, unspecified
CPT/HCPCS: 71046; 93005; 99283; 99284

== ENCOUNTER → 2024-04-22 09:33 | Outpatient (BNV) | payer BC, MEDICAID, SELFPAY | PROVIDERS: Emergency Provider Emergency Medicine; Visit Provider Internal Medicine Cardiovascular Disease | DX: R07.89 Other chest pain (principal) | CPT/HCPCS: 93010 ==

== ENCOUNTER 2024-05-05 08:30 | Outpatient (AMB) | payer BC, MEDICAID, SELFPAY ==
[2024-05-05 08:33] VITALS: BP 122/74; PULSE 74; O2SAT 96; BMI 26.1
--- NOTE | 2024-05-05 08:33 | A.OFFPC_ITS ---
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 In review of the notes, patient was seen in [facility] April 2024 for persistent cough.?X-ray without acute findings.?Treated for bronchitis with azithromycin, prednisone, and benzonatate.?Patient was seen by Gynecology October 2023 for annual visit and had Pap smear completed. Mammogram completed June 2023 BI- RADS 2 follow up in 1 year. Patient states her cough has improved with the antibiotics and the steroids. She has no other acute concerns today. FORMERLY [facility], [facility] Surgical History H/O right inguinal hernia repair History of appendectomy Family History Mother Diabetes Seizure disorder Son No problems noted. Son Autism Daughter No problems noted. Brother No problems noted. Social History Household Members: Family Housing: Apartment Alcohol intake: current Alcohol intake frequency: a few times a week Alcohol type: wine Patient Tobacco Use Status: Never used Tobacco e-Cigarette/Vaping Use: Never Used Second Hand Smoke Exposure: No Current occupational status: employed Cognitive needs: No Hearing needs: No Vision needs: No Female Reproductive History Menstrual Age of Menarche: 13 Questionnaire PHQ-9 Over the last 2 weeks, how often have you been bothered by any of the following problems? 1. Little interest or pleasure in doing things: not at all 2. Feeling down, depressed, or hopeless: not at all 3. Trouble falling or staying asleep, or sleeping too much: not at all 4. Feeling tired or having little energy: not at all 5. Poor appetite or overeating: not at all 6. Feeling bad about yourself - or that you are a failure or have let yourself or your family down: not at all 7. Trouble concentrating on things, such as reading the newspaper or watching television: not at all 8. Moving or speaking so slowly that other people could have noticed. Or the opposite - being so fidgety or restless that you have been moving around a lot more than usual: not at all 9. Thoughts that you would be better off or of hurting yourself in some way: not at all Total score: 0 Depression Screening Interpretation: Negative Depression Screening Done: Yes 63157 - PHQ-9 Billing: Yes Source: Developed by Drs. Trevin Winchester, Rani Marcial, Galdino Hughes and colleagues, with an educational naina from [employer]. Thrive Questionnaire Date Thrive assessed: 05/05/24 I am a: Patient What is your living situation today?: I have a steady place to live Within the past 12 months, did the food you bought not last and you didn't have the money to get more?: Never true Within the past 12 months, did you worry whether your food would run out before you got money to buy more?: Never true Please select the resources that you would like help with: None Currently or been in a relationship where the following occur: No concerns reported THRIVE Score: 0 AUDIT C Alcohol Use Questionnaire (AUDIT-C) 1. How often do you have a drink containing alcohol?: 2-3 times a week 2. How many drinks containing alcohol do you have on a typical day when you are drinking?: 1 or 2 3. How often do you have six or more drinks on one occasion?: Never Total Score: 3 RICHARDSON-7 AMB Questionnaire RICHARDSON-7 Date RICHARDSON - 7 assessed: 05/05/24 Feeling nervous, anxious, or on edge: 0 = Not at all Not being able to stop or control worryin = Not at all Worrying too much about different things: 0 = Not at all Trouble relaxin = Not at all Being so restless that it is hard to sit still: 0 = Not at all Becoming easily annoyed or irritable: 0 = Not at all Feeling afraid as if something awful might happen: 0 = Not at all Total RICHARDSON-7 score (0-4 normal; 5-9 mild; 10-14 moderate; 15-21 severe): 0 Source: Developed by Drs. Trevin Winchester, Rani Marcial, Galdino Hughes and colleagues, with an educational naina from [employer]. RICHARDSON-7 Assessment Billing RICHARDSON-7 Assessment Tool: RICHARDSON-7 Assessment 24190 Review of Systems Const Denies body aches, Denies fatigue, Denies fever(s), Denies frequent falls, Denies headache(s) and Denies weakness Eyes Reports no additional complaints and Denies change in vision ENT Denies dysphagia, Denies dizziness, Denies facial pain, Denies headache(s), Denies nasal congestion and Denies odynophagia Card Denies chest pain, Denies syncope, Denies irregular heart rhythm, Denies leg edema, Denies lightheadedness and Denies dyspnea Resp Denies cough and Denies dyspnea GI Denies constipation, Denies dysphagia, Denies dyspepsia, Denies diarrhea, Denies nausea, Denies odynophagia and Denies vomiting Denies urinary frequency, Denies dysuria, Denies urinary hesitancy and Denies urinary urgency Musc Reports back pain (with menses) and Denies myalgias Skin/Breast Reports system reviewed and no additional complaints, except as documented Neuro Denies dizziness, Denies syncope, Denies frequent falls, Denies headache(s) and Denies weakness Psych Reports no additional complaints Endo Denies fatigue Physical exam (Primary Care) Vital Signs: Last Vital Signs Pulse 74 05/05/24 08:33 BP 122/74 05/05/24 08:33 Pulse Ox 96 05/05/24 08:33 Oxygen Delivery Method Room Air 05/05/24 08:33 BMI result Body Mass Index 26.1 Tobacco/Smoking Status: Tobacco use Status Tobacco use date assessed 05/05/24 05/05/24 08:34 Patient Tobacco Use Status Never used Tobacco 05/05/24 08:34 e-Cigarette/Vaping Use Never Used 05/05/24 08:34 PHQ-9: PHQ-9 Score PHQ-9: Total score 0 05/05/24 08:49 Depression Screening Interpretation: Negative Thrive Assessment: Date of Thrive Assessment Date Thrive assessed 05/05/24 05/05/24 08:42 Currently or been in a relationship where the following occur: No concerns reported Const General: cooperative, healthy appearing, comfortable and no acute distress Orientation/consciousness: patient oriented x3 HENMT Head: Yes normocephalic Ears: hearing grossly normal bilaterally, external ears normal, TM's normal bilaterally and EAC's normal General nose exam: Normal external nose present Face and sinus: Yes normal facial exam and Yes sinuses nontender Mouth: Normal oral and palatal mucosa present and tongue normal Throat: Yes posterior oropharynx normal Eyes General: appearance normal, both eyes and all related structures Conjunctivae: conjunctivae normal Pupils: Equal, round and reactive pupils present EOM: EOMs intact bilaterally and No Nystagmus present Neck Neck: Yes normal visual inspection, Yes full ROM and Yes no lymphadenopathy Chest Chest palpation & inspection: normal inspection of the chest Resp Effort & Inspection: normal respiratory effort Auscultation: clear to auscultation bilaterally, no crackles, no rales, no rhonchi, no wheezes and breath sounds present Cardio Rate: regular rate Rhythm: regular rhythm Peripheral pulses: radial pulses present and dorsalis pedis present GI Inspection: Yes normal to inspection and No Abdominal wall edema Palpation (GI): Soft to palpation, not firm and nontender Auscultation: normal bowel sounds Rectal Exam - Female: deferred General: Yes no CVA tenderness Back/Spine/Pelvis Back: no CVA tenderness Skin General skin exam: no rashes or lesions noted Neuro General: patient oriented x3 Cranial nerves: Yes Equal, round and reactive pupils present, Yes Midline tongue present, Yes Ability to bilaterally elevate shoulders present and No Nystagmus present Gait exam (Neuro): Normal gait present Extrem General: Yes normal to inspection, Yes full ROM, No no pedal edema and No edema Psych Speech and movement: Normal speech and movement present Affect: normal affect Insight: Good insight present (Psych) Judgement: Good judgement present (Psych) Assessment and Plan Assessment & Plan (1) Anxiety and depression: Code(s): F41.9 - Anxiety disorder, unspecified; F32.A - Depression, unspecified Plan: Well managed without medical intervention. Declined the need for counselor at this time. (2) Asthma: Code(s): J45.909 - Unspecified asthma, uncomplicated Plan: Well managed with albuterol inhaler as needed. Avoid triggers such as allergens and strong scents. If you began to use your inhaler multiple times per week or have nighttime awakenings shortness of breath please return to the office for a sooner appointment. (3) Annual physical exam: Code(s): Z00.00 - Encounter for general adult medical examination without abnormal findings Plan: Patient is up-to-date on all routine screenings and vaccinations for her age. Follow up in 1 year or sooner as needed. Mammogram ordered today along with additional blood work. Plan This note was constructed using voice recognition software. While every effort has been made to ensure accuracy and payroll director, still areas may have been included sometimes these areas may affect the content or meeting of the given symptoms. Total time spent caring for the patient today was 30 minutes. This includes time spent before the visit reviewing the chart, time spent during the visit, and time spent after the visit and documentation. Orders: Orders MM tomosynthesis screening BI Today Z12.31 - Encounter for screening mammogram for malignant neoplasm of breast Complete Blood Count Auto Diff Today Z00.00 - Encounter for general adult medical examination without abnormal findings Vitamin D 25-OH (D2 and D3) Today Z00.00 - Encounter for general adult medical examination without abnormal findings Comprehensive Met. Panel Today Z00.00 - Encounter for general adult medical examination without abnormal findings Free T4 (Free Thyroxine) Today Z00.00 - Encounter for general adult medical examination without abnormal findings TSH reflex Free T4 Today Z00.00 - Encounter for general adult medical examination without abnormal findings Vitamin B12 and Folate Today Z00.00 - Encounter for general adult medical examination without abnormal findings Lipid Panel Today Z00.00 - Encounter for general adult medical examination without abnormal findings Medications: Refilled albuterol sulfate 90 mcg/actuation 2 puffs inhalation Q4-6H PRN 6.7 grams 0RF shortness of breath or wheezing J45.909 - Unspecified asthma, uncomplicated Coding Level of Care Code Est Pt Prev Care 40-64y(63372) Diagnoses Anxiety and depression F41.9; F32.A Asthma J45.909 Annual physical exam Z00.00 Additional Codes RICHARDSON-7 Assessment Billing - RICHARDSON-7 Assessment Tool: RICHARDSON-7 Assessment 72199 ([id number])
== END 2024-05-05 08:58 | disposition home or self-care (01) ==
PROVIDERS: PCP Nurse Practitioner Family
DX: F41.9 Anxiety disorder, unspecified (principal); F32.A Depression, unspecified; J45.909 Unspecified asthma, uncomplicated; Z00.00 Encounter for general adult medical examination without abnormal findings
CPT/HCPCS: 96127; 99396

== ENCOUNTER 2024-08-28 09:30 | Outpatient (REF) | payer BC, MEDICAID, SELFPAY | END 2024-08-28 09:31 | disposition home or self-care (01) | LOC: HO.MAMMO 09:30 | DX: Z12.31 Encounter for screening mammogram for malignant neoplasm of breast (principal) | CPT/HCPCS: 77063; 77067 ==

== ENCOUNTER → 2024-08-28 09:30 | Outpatient (BNV) | payer BC, MEDICAID, SELFPAY | PROVIDERS: Visit Provider Internal Medicine | DX: Z12.31 Encounter for screening mammogram for malignant neoplasm of breast (principal) | CPT/HCPCS: 77063; 77067 ==

== ENCOUNTER 2024-10-06 13:02 | Emergency (ER) | payer BC, MEDICAID, SELFPAY ==
--- NOTE | ~2024-10-06 | US_ITS ---
CLINICAL HISTORY: RUQ pain US abdomen limited Comparison: CT/SR - CT ABDOMEN PELVIS WO CON - 03/20/22 18:00 EDT Findings: The visualized pancreas is normal. The aorta and inferior vena cava are normal caliber. The liver is normal in size and echotexture. 9 mm anechoic cyst with posterior acoustic enhancement present at the right hepatic lobe. There is no intrahepatic bile duct dilatation. The common duct is 3.1 mm in diameter. The gallbladder is normal. There is no sonographic Escobedo sign. The main portal vein is antegrade. The right kidney is 10.9 cm in length. Flow present at the right kidney on color Doppler imaging. No right hydronephrosis identified. No ascites. IMPRESSION: 1. No sonographic evidence for acute cholecystitis. No gallstones visualized. This document has been electronically signed by: Luis Gonzalez MD on 10/07/2024 00:50:05
--- NOTE | 2024-10-06 13:32 | ED.ABDPAIN ---
HPI - Abdominal Pain General Chief Complaint: Abdominal Pain Stated Complaint: Abd pain sent from [facility] Time Seen by Provider: 10/06/24 22:34 Source: patient and old records reviewed Mode of arrival: ambulatory Limitations: no limitations History of Present Illness ED Provider: ELICEO CERVANTES narrative: 43 yo female with no sig PMH here with c/o upper abdominal pain x 3 weeks worse with eating, no GIB symptoms, has AM n/v. No diarrhea. She takes advil rarely, she denies fevers. She states she has had prior hernia and appendix. She states she has not seen GI and has no hx of PUD. MD elicited complaint: abdominal pain Pertinent past history: none Onset (ago): week(s) (3) Pain Consistency: intermittent Location: epigastric Severity: moderate Quality: aching Radiation: none Migration to: no migration Exacerbating factors: eating Relieving factors: nothing Associated symptoms: nausea and vomiting Treatments prior to arrival: antacids Related Data Previous Rx's ?Medication ?Instructions ?Recorded norethindrone (contraceptive) 0.35 0.35 mg PO DAILY #84 tabs 11/13/23 mg tablet albuterol sulfate 90 mcg/actuation 2 puff inhalation Q4-6H PRN 05/05/24 aerosol inhaler shortness of breath or wheezing #6.7 grams ferrous sulfate 325 mg (65 mg 325 mg PO DAILY #30 tabs 10/06/24 iron) tablet,delayed release ondansetron 4 mg disintegrating 4 mg PO Q8H PRN nausea and 10/06/24 tablet vomiting #20 tabs Allergies Allergy/AdvReac Type Severity Reaction Status Date / Time No Known Allergies Allergy Verified 10/06/24 13:34 Review of Systems Review of Systems Constitutional : No Weight loss, No Fever, No Chills ENT/Mouth : No sore throat, No Rhinorrhea Eyes: No Swelling, No Redness Cardiovascular : No Chest Pain, No SOB, NoEdema Respiratory : No Cough, No Sputum, No Wheezing Gastrointestinal : Positive Nausea, Positive Vomiting, no Diarrhea, positive abdominal Pain, No Hematochezia, No Melena Genitourinary : No Dysuria, No Urinary Frequency, No Hematuria, No Urgency Musculoskeletal : No joint pain, No Myalgias, No Joint Swelling Skin : No Skin Lesions, No rash Neuro : No Weakness, No Numbness, No Dizziness, No Headache Psych : No Anxiety/Panic, No Depression All other systems reviewed and are negative. [facility] Past Medical History Attestation statement: The following information was validated with the patient. Source: old records reviewed Surgical History H/O right inguinal hernia repair History of appendectomy Family History Family History Mother Diabetes Seizure disorder Son No problems noted. Son Autism Daughter No problems noted. Brother No problems noted. Social History Social History Household Members: Family Housing: Apartment Alcohol intake: current Alcohol intake frequency: a few times a week Alcohol type: wine Patient Tobacco Use Status: Never used Tobacco Smoked in Last 30 Days: No e-Cigarette/Vaping Use: Never Used Second Hand Smoke Exposure: No Advance Directives: No Advance Directives Information Provided: No Do you have a plan to hurt others: No Plan Current occupational status: employed Cognitive needs: No Hearing needs: No Vision needs: No Physical Exam ED Vital Signs: Vital Signs - 24 hr 10/06/24 13:33 10/06/24 22:37 10/07/24 00:37 Temperature 98.1 F 97.6 F 97.8 F Pulse Rate 118 H 122 H 94 Respiratory Rate 18 16 20 Blood Pressure 134/72 145/88 H 122/60 Pulse Oximetry 98 98 99 Oxygen Delivery Method Room Air Room Air Room Air BMI result Body Mass Index 24.9 Appearance: Alert. Oriented X3. No acute distress. Eyes: Pupils equal, round and reactive to light. ENT: Pharynx normal. Neck: Normal inspection. Neck supple. CVS: Normal heart rate and rhythm. Pulses normal. Respiratory: No respiratory distress. Breath sounds normal. Abdomen: Soft and mild RUQ neg murphys Skin: Skin warm and dry. Normal skin color. Normal skin turgor. Extremities: No lower extremity edema. No calf ttp Neuro: Oriented X 3. No motor deficit. No sensory deficit. CN2-12 intact Course Course Course Narrative: This is an RME: Additional HPI, ROS, PE not included below will be deferred to primary provider. RME assessment and note performed by: Luda Casiano PA-C This is a [id number]-female, with a hx of asthma, anxiety and depression who presents to the ER with complaints of abdominal pain, nausea, vomiting x 3 weeks. Pt tachycardic in triage in 110s-120s. Patient was seen at an urgent care where her hemoglobin was 9.7 and was told to come to the ER Plan: Labs, EKG, viral swabs Medical Decision Making Medical Decision Making MDM Narrative: 43 yo female no sig PMH here with 3 weeks of upper abdominal pain worse with eating and drinking, she is vomiting worse in AM, denies GIB symptoms, rarely takes NSAIDs, at this time basic labs, US to evaluate GB, IVF and supportive medications. She was just started on PPI will continue that and start zofran given GI number if work up negative Differential Diagnosis Differential Diagnoses: The differential diagnosis associated with the presentation includes PUD, anemia, dehydration, biliary colic Admission/Observation Consideration of admission/observation: Escalation of care including admission/observation considered work up reassuring stable for DC Lab Data MDM Lab Attestation statement: I reviewed the patient's lab results. 10/06/24 14:01 10/06/24 14:01 Labs: Lab Results 10/06/24 10/06/24 10/06/24 Range/Units 13:59 14:00 14:01 WBC 4.6 L (4.8-10.8) X10*3/uL RBC 4.40 (4.20-5.50) X10*6/uL Hgb 9.7 L (12.0-16.0) g/dl Hct 32.3 L (37.0-47.0) % MCV 73.4 L (80.0-98.0) fL MCH 22.0 L (27.0-33.0) pg MCHC 30.0 L (31.0-35.0) g/dl RDW 16.7 H (11.0-16.0) % Plt Count 258 (160-400) X10*3/uL MPV 9.6 (9.4-12.3) fL Immature Gran % (Auto) 0.2 (0.0-0.4) % Neut % (Auto) 64.0 (45-73) % Lymph % (Auto) 25.9 (20-40) % Harney % (Auto) 9.0 (2-11) % Eos % (Auto) 0.7 (0-4) % Baso % (Auto) 0.2 (0-2) % Lymph # (Auto) 1.2 (1.2-4.9) X10*3/uL Harney # (Auto) 0.4 (0.1-1.2) X10*3/uL Eos # (Auto) 0.0 (0.0-0.4) X10*3/uL Baso # (Auto) 0.0 (0.0-0.2) X10*3/uL Abs Immat Gran (auto) 0.01 (0.00-0.03) X10*3/uL Absolute Neuts (auto) 2.9 (2.0-8.3) x10*3/uL Absolute Nucleated RBC 0.000 (0.0-0.012) X10*3/uL Nucleated RBC % (auto) 0.0 (0.0-0.2) /100WBC Sodium 144 (135-145) mmol/L Potassium 3.6 (3.3-5.1) mmol/L Chloride 109 H (96-108) mmol/L Carbon Dioxide 26 (22-29) mmol/L Anion Gap 13 (12-20) BUN 12 (9-16) mg/dL Creatinine 0.49 L (0.5-1.4) mg/dL Estim Creat Clear Calc 140.0 Estimated GFR > 60 Random Glucose 106 (60-115) mg/dL Lactic Acid 1.6 (0.5-2.0) mmol/L Calcium 9.4 (8.4-10.2) mg/dL Magnesium 1.9 (1.6-2.6) mg/dL Total Bilirubin 0.3 (0.0-1.0) mg/dL Direct Bilirubin 0.1 (0.0-0.5) mg/dL AST 38 H (5-31) U/L ALT 56 H (0-31) U/L Alkaline Phosphatase 74 (39-117) U/L Troponin I High Sens < 2.7 (<3.5-17.0) ng/L Total Protein 6.9 (6.5-8.0) g/dL Albumin 3.7 (3.5-5.0) g/dL Lipase 11 (8-78) U/L Beta HCG, Quant < 2 mIU/mL Urine Color Urine Appearance Urine pH (5.0-9.0) Ur Specific Trimble (1.005-1.025) Urine Protein (Neg-Trace) mg/dL Urine Glucose (UA) (Negative) mg/dL Urine Ketones (Negative) mg/dL Urine Blood (Negative) Urine Nitrite (Negative) Ur Leukocyte Esterase (Negative) Influenza Type A (PCR) NEGATIVE (Negative) Influenza Type B (PCR) NEGATIVE (Negative) RSV RNA Qual (PCR) NEGATIVE (Negative) SARS-CoV-2 RNA (RT-PCR) NEGATIVE (Negative) Blood Type O Positive Antibody Screen NEGATIVE 10/06/24 Range/Units 14:04 WBC (4.8-10.8) X10*3/uL RBC (4.20-5.50) X10*6/uL Hgb (12.0-16.0) g/dl Hct (37.0-47.0) % MCV (80.0-98.0) fL MCH (27.0-33.0) pg MCHC (31.0-35.0) g/dl RDW (11.0-16.0) % Plt Count (160-400) X10*3/uL MPV (9.4-12.3) fL Immature Gran % (Auto) (0.0-0.4) % Neut % (Auto) (45-73) % Lymph % (Auto) (20-40) % Harney % (Auto) (2-11) % Eos % (Auto) (0-4) % Baso % (Auto) (0-2) % Lymph # (Auto) (1.2-4.9) X10*3/uL Harney # (Auto) (0.1-1.2) X10*3/uL Eos # (Auto) (0.0-0.4) X10*3/uL Baso # (Auto) (0.0-0.2) X10*3/uL Abs Immat Gran (auto) (0.00-0.03) X10*3/uL Absolute Neuts (auto) (2.0-8.3) x10*3/uL Absolute Nucleated RBC (0.0-0.012) X10*3/uL Nucleated RBC % (auto) (0.0-0.2) /100WBC Sodium (135-145) mmol/L Potassium (3.3-5.1) mmol/L Chloride (96-108) mmol/L Carbon Dioxide (22-29) mmol/L Anion Gap (12-20) BUN (9-16) mg/dL Creatinine (0.5-1.4) mg/dL Estim Creat Clear Calc Estimated GFR Random Glucose (60-115) mg/dL Lactic Acid (0.5-2.0) mmol/L Calcium (8.4-10.2) mg/dL Magnesium (1.6-2.6) mg/dL Total Bilirubin (0.0-1.0) mg/dL Direct Bilirubin (0.0-0.5) mg/dL AST (5-31) U/L ALT (0-31) U/L Alkaline Phosphatase (39-117) U/L Troponin I High Sens (<3.5-17.0) ng/L Total Protein (6.5-8.0) g/dL Albumin (3.5-5.0) g/dL Lipase (8-78) U/L Beta HCG, Quant mIU/mL Urine Color Yellow Urine Appearance Clear Urine pH 6.0 (5.0-9.0) Ur Specific Trimble 1.020 (1.005-1.025) Urine Protein Negative (Neg-Trace) mg/dL Urine Glucose (UA) Negative (Negative) mg/dL Urine Ketones Negative (Negative) mg/dL Urine Blood Negative (Negative) Urine Nitrite Negative (Negative) Ur Leukocyte Esterase Negative (Negative) Influenza Type A (PCR) (Negative) Influenza Type B (PCR) (Negative) RSV RNA Qual (PCR) (Negative) SARS-CoV-2 RNA (RT-PCR) (Negative) Blood Type Antibody Screen Independent Interpretation I performed an independent interpretation of an: EKG and Ultrasound (normal ) Interpretation: Rate: 107 Rhythm: sinus tachycardia Naselle: normal Normal P waves. Normal RADHIKA. Normal QRS complex. ST T wave : no NOAMI, inverted t waves V1 qTC: 399 prior studies: The study has been interpreted contemporaneously by me. . Radiology Impression Discussion of test interpretation with radiology: I have reviewed the radiologist's reading. External Record Review External record reviewed: Outpatient record Prescription Management I considered prescription management with: Other Medications Administered Discontinued Medications Generic Name Dose Route Start Last Admin Trade Name Freq PRN Reason Stop Dose Admin Lactated Ringer's 1,000 mls @ 999 mls/hr 10/06/24 23:17 10/06/24 23:35 Lr IV 10/07/24 00:17 999 mls/hr .Q1H1M ONE Administration Ondansetron HCl 4 mg 10/06/24 23:17 10/06/24 23:36 Ondansetron Hcl 4 Mg/2 Ml Vial IVPUSH 10/06/24 23:18 4 mg ONCE ONE Administration Pantoprazole Sodium 40 mg 10/06/24 23:17 10/06/24 23:36 Pantoprazole Sodium 40 Mg/10 Ml Vial IVPUSH 10/06/24 23:18 40 mg ONCE ONE Administration Discharge Plan Discharge Clinical Impression: Acute upper abdominal pain Nausea & vomiting Qualifiers: Vomiting type: unspecified Qualified Code(s): R11.2 - Nausea with vomiting, unspecified Anemia Qualifiers: Anemia type: unspecified type Qualified Code(s): D64.9 - Anemia, unspecified Patient Disposition: Home, Self-Care Instructions: Acute Nausea and Vomiting (ED), Abdominal Pain (ED), Anemia (ED) Additional Instructions: bland diet avoid advil it is okay to take tylenol take omeprazole stay hydrated, return for any worsening symptoms or concerns. follow up with PCP repeat liver tests and blood counts in 3 days Prescriptions: New ferrous sulfate 325 mg (65 mg iron) tablet,delayed release (DR/EC) 325 mg PO DAILY Qty: 30 0RF ondansetron 4 mg tablet,disintegrating 4 mg PO Q8H PRN (Reason: nausea and vomiting) Qty: 20 0RF No Action albuterol sulfate 90 mcg/actuation HFA aerosol inhaler 2 puff inhalation Q4-6H PRN (Reason: shortness of breath or wheezing) Qty: 6.7 0RF norethindrone (contraceptive) 0.35 mg tablet 0.35 mg PO DAILY Qty: 84 3RF Rx Instructions: Start at the beginning of the next menses Referrals: [facility] Gastroenterology Services [Provider Group] Stand Alone Forms: Work/School Release Print Language: Afghan
[2024-10-06 13:33] VITALS: BP 134/72; PULSE 118; RESP 18; TEMP 36.7; O2SAT 98; BMI 24.9
--- NOTE | 2024-10-06 13:37 | ECG_ITS ---
Test Reason : epigastric pain Blood Pressure : */* mmHG Vent. Rate : 107 BPM Atrial Rate : 107 BPM P-R Int : 148 ms QRS Dur : 76 ms QT Int : 336 ms P-R-T Axes : 68 -19 46 degrees QTcB Int : 448 ms Sinus tachycardia Minimal voltage criteria for LVH, may be normal variant ( R in aVL ) Borderline ECG When compared with ECG of 22-Apr-2024 09:33, No significant change was found Referred By: Luda Casiano Electronically Signed By: MARK LANDAVERDE MD
[2024-10-06 14:10] LABS: MANUAL DIFF FLAG NO
[2024-10-06 14:11] LABS: Basophils Percent Auto 0.2 % (0-2); Eosinophils Percent Auto 0.7 % (0-4); Hematocrit 32.3 % (37.0-47.0); Hemoglobin 9.7 g/dl (12.0-16.0); Imm Gran Abs Auto 0.01 X10*3/uL (0.00-0.03); Imm Gran Pct Auto 0.2 % (0.0-0.4); Lymphocytes Absolute Auto 1.2 X10*3/uL (1.2-4.9); Lymphocytes Percent Auto 25.9 % (20-40); Mean Corpuscular Volume 73.4 fL (80.0-98.0); Mean Platelet Volume 9.6 fL (9.4-12.3); Monocytes Absolute Auto 0.4 X10*3/uL (0.1-1.2); Neutrophils Absolute Auto 2.9 x10*3/uL (2.0-8.3); Platelet Count 258 X10*3/uL (160-400); Red Cell Distribution Width 16.7 % (11.0-16.0); White Blood Count 4.6 X10*3/uL (4.8-10.8)
[2024-10-06 14:18] LABS: Appearance Urine Clear; Color Urine Yellow; Glucose Urine UA Negative (Negative); Leukocyte Esterase Urine Negative (Negative); Nitrite Urine Negative (Negative); Urine Blood Negative (Negative); Urine Ketones Negative (Negative); Urine Protein Negative (Neg-Trace)
[2024-10-06 14:28] LABS: Lactic Acid 1.6 mmol/L (0.5-2.0)
[2024-10-06 14:41] LABS: Alanine Aminotransferase 56 U/L (0-31); Albumin Level 3.7 g/dL (3.5-5.0); Alkaline Phosphatase 74 U/L (39-117); Anion Gap 13 (12-20); Aspartate Amino Transferase 38 U/L (5-31); Bilirubin Direct 0.1 mg/dL (0.0-0.5); Bilirubin Total 0.3 mg/dL (0.0-1.0); Blood Urea Nitrogen 12 mg/dL (9-16); Calcium 9.4 mg/dL (8.4-10.2); Carbon Dioxide 26 mmol/L (22-29); Chloride 109 mmol/L (96-108); Estimated Glomerular Filt Rate > 60; Glucose Random 106 mg/dL (60-115); HCG Quantitative < 2 mIU/mL; Lipase 11 U/L (8-78); Magnesium 1.9 mg/dL (1.6-2.6); Potassium 3.6 mmol/L (3.3-5.1); Sodium 144 mmol/L (135-145); Total Protein 6.9 g/dL (6.5-8.0); Troponin-I High Sensitivity < 2.7 ng/L (<3.5-17.0)
[2024-10-06 14:50] LABS: Influenza A PCR NEGATIVE (Negative); Influenza B PCR NEGATIVE (Negative); Resp Syncy Virus RNA Qual PCR NEGATIVE (Negative); SARS COV2 PCR INHOUSE NEGATIVE (Negative)
[2024-10-06 22:37] VITALS: BP 145/88; PULSE 122; RESP 16; TEMP 36.4; O2SAT 98
[2024-10-06] MEDS: Lactated Ringers 1,000 ML 999 ML IV (23:35)
[2024-10-06] MEDS: Pantoprazole Sodium 40 MG/10 ML VIAL IVPUSH (23:36)
[2024-10-06] MEDS: ondansetron HCL 4 MG/2 ML VIAL IVPUSH (23:36)
--- NOTE | 2024-10-06 23:40 | PC.NURSE ---
Ib placed, medicated per nov.
[2024-10-07 00:37] VITALS: BP 122/60; PULSE 94; RESP 20; TEMP 36.6; O2SAT 99
[2024-10-07 01:08] VITALS: BP 122/60; PULSE 94; RESP 20; TEMP 36.6; O2SAT 99
== END 2024-10-07 01:20 | disposition home or self-care (01) ==
PROVIDERS: Physician Assistant Medical; Emergency Provider Emergency Medicine
DX: R10.10 Upper abdominal pain, unspecified (principal); R11.2 Nausea with vomiting, unspecified; D64.9 Anemia, unspecified; R00.0 Tachycardia, unspecified; Z03.818 Encounter for observation for suspected exposure to other biological agents ruled out
CPT/HCPCS: 0241U; 76705; 80048; 80076; 81003; 83605; 83690; 83735; 84484; 84702; 85025; 86850; 86900; 86901; 87040; 93005; 96361; 96374; 96375; 99284; 99285; J2405; J2470; J7120

== ENCOUNTER → 2024-10-06 13:37 | Outpatient (BNV) | payer BC, MEDICAID, SELFPAY | PROVIDERS: Emergency Provider Emergency Medicine; Visit Provider Internal Medicine Cardiovascular Disease | DX: R00.0 Tachycardia, unspecified (principal); R94.31 Abnormal electrocardiogram [ECG] [EKG]; R10.13 Epigastric pain | CPT/HCPCS: 93010 ==

== ENCOUNTER → 2024-10-06 22:39 | Outpatient (BNV) | payer BC, MEDICAID, SELFPAY | PROVIDERS: Emergency Provider Emergency Medicine; Visit Provider Radiology Diagnostic Radiology | DX: R10.11 Right upper quadrant pain (principal) | CPT/HCPCS: 76705 ==

== ENCOUNTER 2024-10-08 15:22 | Outpatient (AMB) | payer BC, MEDICAID, SELFPAY ==
--- NOTE | 2024-10-08 15:34 | MHC.PC.OV ---
Vital Signs 10/08/24 15:36 Height 5 ft 6 in Weight 154 lb 4 oz BMI 24.9 BP 116/64 Blood Pressure Location Lt brachial Position Sitting Pulse 123 H Pulse Source Pulse Oximeter Temp 97.1 F Temp Source Temporal Artery Scan Pulse Oximetry (%) 97 Oxygen Delivery Method Room Air Intake Visit Reasons: ED/fu appointment Allergies No Known Allergies Allergy (Verified 10/06/24 13:34) Medication List - Last Reconciled 10/08/24 by Chantal Cardona PA-C albuterol sulfate 90 mcg/actuation 2 puffs inhalation Q4-6H PRN ferrous sulfate 325 mg PO DAILY norethindrone (contraceptive) 0.35 mg PO DAILY ondansetron 4 mg PO Q8H PRN Tobacco use date assessed: 05/05/24 Dental Screening Dental Screen Date: 05/05/24 HPI ED/fu appointment HPI Details 44-year-old female with past medical history of asthma, anxiety, and depression last seen 04/2024 coming in for follow up in ED. in review of the notes, patient was seen in [facility] 10/06/2024 for abdominal pain workup negative in the ED advised bland diet, omeprazole, oral iron, stay well hydrated and follow up with PCP for repeat LFTs and CBC. Patient tells us today she has been having epigastric pain since 09/16/2024 that began spontaneously without any triggers. The epigastric pain has been intermittent and is typically worse while eating. She will have nausea with this and occasionally vomiting her last episode of vomiting was 2 days ago which brought her to the ED. she denies any changes in her stool initially she had diarrhea with the epigastric pain however this resolved and stool returned to normal. Denies any blood in stool or vomit. She does not identify any inciting factors besides eating and does not have any relieving factors. She did start on the omeprazole at the recommendation of the ED but has not noticed an improvement. [facility] Surgical History H/O right inguinal hernia repair History of appendectomy Family History Mother Diabetes Seizure disorder Son No problems noted. Son Autism Daughter No problems noted. Brother No problems noted. Social History Household Members: Family Housing: Apartment Alcohol intake: current Alcohol intake frequency: a few times a week Alcohol type: wine Patient Tobacco Use Status: Never used Tobacco e-Cigarette/Vaping Use: Never Used Second Hand Smoke Exposure: No Current occupational status: employed Cognitive needs: No Hearing needs: No Vision needs: No Female Reproductive History Menstrual Age of Menarche: 13 Questionnaire PHQ-9 Over the last 2 weeks, how often have you been bothered by any of the following problems? 1. Little interest or pleasure in doing things: not at all 2. Feeling down, depressed, or hopeless: not at all 3. Trouble falling or staying asleep, or sleeping too much: not at all 4. Feeling tired or having little energy: not at all 5. Poor appetite or overeating: not at all 6. Feeling bad about yourself - or that you are a failure or have let yourself or your family down: not at all 7. Trouble concentrating on things, such as reading the newspaper or watching television: not at all 8. Moving or speaking so slowly that other people could have noticed. Or the opposite - being so fidgety or restless that you have been moving around a lot more than usual: not at all 9. Thoughts that you would be better off or of hurting yourself in some way: not at all Total score: 0 Depression Screening Interpretation: Negative Depression Screening Done: Yes 02787 - PHQ-9 Billing: Yes Source: Developed by Drs. Trevin Winchester, Rani Marcial, Galdino Hughes and colleagues, with an educational naina from [employer]. Thrive Questionnaire Date Thrive assessed: 10/08/24 I am a: Patient What is your living situation today?: I have a steady place to live Within the past 12 months, did the food you bought not last and you didn't have the money to get more?: Never true Within the past 12 months, did you worry whether your food would run out before you got money to buy more?: Never true Do you have trouble paying for medicines?: No Do you have trouble getting transportation to medical appointments?: No Do you have trouble paying your heating and electricity bill?: No Do you have trouble taking care of your child, family member or friend?: No Do you have trouble with day-to-day activities such as bathing, preparing meals, shopping, managing finances, etc.?: No Are you currently unemployed and looking for a job?: No Are you interested in more education?: No Please select the resources that you would like help with: None Currently or been in a relationship where the following occur: No concerns reported THRIVE Score: 0 AUDIT C Alcohol Use Questionnaire (AUDIT-C) 1. How often do you have a drink containing alcohol?: 2-3 times a week 2. How many drinks containing alcohol do you have on a typical day when you are drinking?: 1 or 2 3. How often do you have six or more drinks on one occasion?: Never Total Score: 3 RICHARDSON-7 AMB Questionnaire RICHARDSON-7 Date RICHARDSON - 7 assessed: 10/08/24 Feeling nervous, anxious, or on edge: 0 = Not at all Not being able to stop or control worryin = Not at all Worrying too much about different things: 0 = Not at all Trouble relaxin = Not at all Being so restless that it is hard to sit still: 0 = Not at all Becoming easily annoyed or irritable: 0 = Not at all Feeling afraid as if something awful might happen: 0 = Not at all Total RICHARDSON-7 score (0-4 normal; 5-9 mild; 10-14 moderate; 15-21 severe): 0 Source: Developed by Drs. Trevin Winchester, Rani Marcial, Galdino Hughes and colleagues, with an educational naina from [employer]. RICHARDSON-7 Assessment Billing RICHARDSON-7 Assessment Tool: RICHARDSON-7 Assessment 61340 Review of Systems Const Denies body aches, Denies chills, Denies fever(s), Denies headache(s) and Reports poor appetite Eyes Reports no additional complaints ENT Denies dysphagia, Denies dizziness, Denies headache(s) and Denies odynophagia Card Denies chest pain, Denies edema, Denies irregular heart rhythm, Reports lightheadedness and Denies dyspnea Resp Denies cough and Denies dyspnea GI Reports abdominal pain, Denies constipation, Denies dysphagia, Reports dyspepsia, Denies diarrhea, Reports nausea, Denies odynophagia and Reports vomiting Reports no additional complaints Musc Reports no additional complaints and Denies abnormal gait Skin/Breast Reports system reviewed and no additional complaints, except as documented Neuro Denies abnormal gait, Denies dizziness and Denies headache(s) Psych Reports no additional complaints Physical exam (Primary Care) Vital Signs: Last Vital Signs Temp 97.1 F 10/08/24 15:36 Pulse 123 H 10/08/24 15:36 BP 116/64 10/08/24 15:36 Pulse Ox 97 10/08/24 15:36 Oxygen Delivery Method Room Air 10/08/24 15:36 BMI result Body Mass Index 24.9 Tobacco/Smoking Status: Tobacco use Status Tobacco use date assessed 05/05/24 10/08/24 15:34 Patient Tobacco Use Status Never used Tobacco 10/08/24 15:34 e-Cigarette/Vaping Use Never Used 10/08/24 15:34 PHQ-9: PHQ-9 Score PHQ-9: Total score 0 10/08/24 15:47 Depression Screening Interpretation: Negative Thrive Assessment: Date of Thrive Assessment Date Thrive assessed 10/08/24 10/08/24 15:40 Currently or been in a relationship where the following occur: No concerns reported Const General: cooperative, healthy appearing, comfortable and no acute distress Orientation/consciousness: patient oriented x3 HENMT Head: Yes normocephalic Ears: hearing grossly normal bilaterally General nose exam: Normal external nose present Eyes General: appearance normal, both eyes and all related structures Conjunctivae: conjunctivae normal Neck Neck: Yes full ROM and Yes no lymphadenopathy Resp Effort & Inspection: normal respiratory effort Auscultation: clear to auscultation bilaterally, no crackles, no rales, no rhonchi and no wheezes Cardio Rate: regular rate Rhythm: regular rhythm GI Palpation (GI): Soft to palpation, not firm, Tenderness to palpation present (GI) in the epigastrum, no guarding, not rigid and No Rebound tenderness present Skin General skin exam: no rashes or lesions noted Neuro General: patient oriented x3 Gait exam (Neuro): Normal gait present Extrem General: Yes normal to inspection, Yes full ROM and No edema Psych Affect: normal affect Attitude: cooperative Insight: Good insight present (Psych) Judgement: Good judgement present (Psych) Coding Level of Care Code Est Pt Level 4 (51262) Diagnoses Anemia D64.9 Anemia type: unspecified type Epigastric pain R10.13 Additional Codes RICHARDSON-7 Assessment Billing - RICHARDSON-7 Assessment Tool: RICHARDSON-7 Assessment 16615 ([id number]) PHQ-9 - 06557 - PHQ-9 Billing: Yes ([id number]) Assessment & Plan Assessment & Plan (1) Anemia: Code(s): D64.9 - Anemia, unspecified Category: Medical Qualifiers: Anemia type: unspecified type Qualified Code(s): D64.9 - Anemia, unspecified Plan: Patient having anemia on last blood work. She does state she has heavy menses and without recent blood work to compare it to this could be an ongoing issue for her. Per recommendation from ED we will have repeat blood work tomorrow including CBC and iron panel. We will continue to monitor from there. (2) Epigastric pain: Code(s): R10.13 - Epigastric pain Category: Medical Plan: Patient complaining of continued epigastric pain that is intermittent in nature and occasionally worse while eating. She has been on the omeprazole and has been noticed very mild improvement however she has only been on this medication for 2 days. Recommend referral to GI, stool H pylori testing, and upper GI series for further evaluation. Patient is in agreement. Reviewed red flag symptoms and when to present for re-evaluation. Plan This note was constructed using voice recognition software. While every effort has been made to ensure accuracy and program advisor, still areas may have been included sometimes these areas may affect the content or meeting of the given symptoms. Total time spent caring for the patient today was 20 minutes. This includes time spent before the visit reviewing the chart, time spent during the visit, and time spent after the visit and documentation. Orders: Orders IRON PROFILE Today D64.9 - Anemia, unspecified FL upper GI series Today R10.13 - Epigastric pain H pylori Ag Stool Today R10.13 - Epigastric pain Referrals Gastroenterology Referral R10.13 - Epigastric pain
[2024-10-08 15:36] VITALS: BP 116/64; PULSE 123; TEMP 36.2; O2SAT 97; BMI 24.9
== END 2024-10-08 16:11 | disposition home or self-care (01) ==
DX: D64.9 Anemia, unspecified (principal); R10.13 Epigastric pain

== ENCOUNTER → 2024-10-08 15:22 | Outpatient (BNVA) | payer BC, MEDICAID, SELFPAY | DX: D64.9 Anemia, unspecified (principal); R10.13 Epigastric pain | CPT/HCPCS: 96127 ==

== ENCOUNTER 2024-10-10 08:23 | Outpatient (REF) | payer BC, MEDICAID, SELFPAY ==
[2024-10-10 08:50] LABS: MANUAL DIFF FLAG NO
[2024-10-10 09:45] LABS: Basophils Percent Auto 0.5 % (0-2); Eosinophils Percent Auto 0.8 % (0-4); Hematocrit 35.1 % (37.0-47.0); Hemoglobin 10.6 g/dl (12.0-16.0); Imm Gran Abs Auto 0.01 X10*3/uL (0.00-0.03); Imm Gran Pct Auto 0.3 % (0.0-0.4); Lymphocytes Absolute Auto 1.3 X10*3/uL (1.2-4.9); Lymphocytes Percent Auto 32.2 % (20-40); Mean Corpuscular HGB Conc 30.2 g/dl (31.0-35.0); Mean Corpuscular Hemoglobin 22.3 pg (27.0-33.0); Mean Corpuscular Volume 73.7 fL (80.0-98.0); Mean Platelet Volume 9.9 fL (9.4-12.3); Monocytes Absolute Auto 0.4 X10*3/uL (0.1-1.2); Monocytes Percent Auto 10.5 % (2-11); Neutrophils Absolute Auto 2.2 x10*3/uL (2.0-8.3); Neutrophils Percent Auto 55.7 % (45-73); Platelet Count 287 X10*3/uL (160-400); Red Blood Count 4.76 X10*6/uL (4.20-5.50); Red Cell Distribution Width 16.7 % (11.0-16.0); White Blood Count 3.9 X10*3/uL (4.8-10.8)
[2024-10-10 11:13] LABS: Folate 3.7 ng/mL (> or = 4.0); Vitamin B12 374 pg/mL (200-900)
[2024-10-10 13:13] LABS: Free T4 (Free Thyroxine) 3.56 ng/dL (0.71-1.85); TSH reflex Free T4 < 0.01 uIU/mL (0.32-4.0)
[2024-10-10 13:20] LABS: Alanine Aminotransferase 42 U/L (0-31); Albumin Level 3.9 g/dL (3.5-5.0); Anion Gap 11 (12-20); Aspartate Amino Transferase 33 U/L (5-31); Bilirubin Total 0.4 mg/dL (0.0-1.0); Blood Urea Nitrogen 19 mg/dL (9-16); Calcium 10.1 mg/dL (8.4-10.2); Carbon Dioxide 24 mmol/L (22-29); Chloride 108 mmol/L (96-108); Cholesterol 149 mg/dL (<200); Estimated Glomerular Filt Rate > 60; Glucose Random 93 mg/dL (60-115); HDL Cholesterol 51 mg/dL (>40); Iron 23 mcg/dL (30-160); LDL Cholesterol Calculated 83 mg/dL (<100); Percent Iron Saturation 7 % (15-50); Potassium 4.1 mmol/L (3.3-5.1); Sodium 139 mmol/L (135-145); Total Iron Binding Capacity 317 mcg/dL (228-428); Total Protein 7.4 g/dL (6.5-8.0); Triglycerides 78 mg/dL (<150); Unsaturated Iron Binding 294 ug/dL
[2024-10-10 14:17] LABS: Alkaline Phosphatase 75 U/L (39-117)
[2024-10-14 16:38] LABS: Vitamin D 25-OH, D2 <4 ng/mL; Vitamin D 25-OH, D3 7 ng/mL; Vitamin D 25-OH, Total 7 ng/mL (30-100)
== END 2024-10-10 08:24 | disposition home or self-care (01) ==
LOC: HO.LAB 08:23
DX: Z00.00 Encounter for general adult medical examination without abnormal findings (principal); D64.9 Anemia, unspecified
CPT/HCPCS: 36415; 80053; 80061; 82306; 82607; 82746; 83540; 84439; 84443; 85025

== ENCOUNTER 2024-10-12 | Outpatient (REF) | payer BC, MEDICAID, SELFPAY | END 2024-10-12 00:01 | disposition home or self-care (01) | LOC: HO.LNP | DX: R10.13 Epigastric pain (principal) | CPT/HCPCS: 87338 ==

== ENCOUNTER 2024-11-04 07:16 | Outpatient (REF) | payer BC, MEDICAID, SELFPAY ==
[2024-11-04 08:36] LABS: Free T4 (Free Thyroxine) 3.45 ng/dL (0.71-1.85); TSH reflex Free T4 0.01 uIU/mL (0.32-4.0)
[2024-11-05 05:34] LABS: Triiodothyronine T3 Free >20.0 pg/mL (2.3-4.2)
[2024-11-05 21:03] LABS: Thyroid Peroxidase Antibodies 719 IU/mL (<9)
[2024-11-07 17:15] LABS: Thyroid Stimulating Immunoglob 316 % baseline (<140)
[2024-11-08 18:18] LABS: Thyrotropin Receptor Antibody 25.11 IU/L (<=2.00)
[2024-11-10 17:04] LABS: Triiodothyronine T3 Reverse 82 ng/dL (8-25)
== END 2024-11-04 07:17 | disposition home or self-care (01) ==
LOC: HO.LAB 07:16
DX: Z00.00 Encounter for general adult medical examination without abnormal findings (principal); R79.89 Other specified abnormal findings of blood chemistry
CPT/HCPCS: 36415; 83520; 84439; 84443; 84445; 84481; 84482; 86376

== ENCOUNTER 2024-12-08 11:23 | Outpatient (REF) | payer BC, SELFPAY ==
--- NOTE | ~2024-12-08 | US_ITS ---
EXAMINATION: US THYROID HISTORY: E05.90 - Thyrotoxicosis, unspecified without thyrotoxic crisis or storm TECHNIQUE: Real-time grayscale ultrasound imaging was performed and images were reviewed. COMPARISON: There are no prior studies for comparison. FINDINGS: SIZE: The right thyroid lobe measures 6.1 x 2.7 x 2.4 cm. The left thyroid lobe measures 5.7 x 2.2 x 2.5 cm. The isthmus measures 6 mm. FLOW: Flow to the gland is increased. ECHOGENICITY: The echotexture of the gland is heterogeneous. NODULES: No discrete nodules are identified. US/US thyroid IMPRESSION: Enlarged, hypervascular thyroid gland demonstrating heterogeneous echotexture without evidence of discrete nodules. ACR TI-RADS Guidelines TR1 (0 points): Benign, No follow-up or biopsy required TR2 (2 points): Not Suspicious, No biopsy or follow up indicated TR3 (3 points): Mildly Suspicious, FNA if >= 2.5 cm, Follow if >= 1.5 cm TR4 (4-6 points): Moderately Suspicious, FNA if >= 1.5 cm, Follow if >= 1.0 cm TR5 (>=7 points): Highly Suspicious, FNA if >= 1.0 cm, Follow if >= 0.5 cm Electronically signed by: Trevin Mcclain MD 12/09/2024 07:34 AM EDT
== END 2024-12-08 11:24 | disposition home or self-care (01) ==
LOC: HO.US 11:23
DX: E05.90 Thyrotoxicosis, unspecified without thyrotoxic crisis or storm (principal)
CPT/HCPCS: 76536

== ENCOUNTER → 2024-12-08 11:24 | Outpatient (BNV) | payer BC, SELFPAY | PROVIDERS: Visit Provider Radiology Diagnostic Radiology | DX: E04.9 Nontoxic goiter, unspecified (principal) | CPT/HCPCS: 76536 ==

== ENCOUNTER 2024-12-19 10:46 | Outpatient (AMB) | payer BC, SELFPAY ==
--- NOTE | 2024-12-19 10:47 | MHC.OFFVIS ---
Vital Signs 12/19/24 10:48 Height 5 ft 6 in Weight 153 lb 14.122 oz BMI 24.8 BP 116/70 Blood Pressure Location Lt brachial Position Sitting Pulse 117 H Pulse Source Pulse Oximeter Pulse Oximetry (%) 100 Oxygen Delivery Method Room Air Intake Visit Reasons: Thyrotoxicosis, unspec w/o thyrotoxic crisis/storm Intake Note: Patient presents today for thyrotoxicosis Allergies No Known Allergies Allergy (Verified 12/19/24 10:51) Medication List - Last Reconciled 12/19/24 by Francisca Orellana MD albuterol sulfate 90 mcg/actuation 2 puffs inhalation Q4-6H PRN cholecalciferol (vitamin D3) 25 mcg PO DAILY ferrous sulfate 325 mg PO DAILY folic acid 1 mg PO DAILY norethindrone (contraceptive) 0.35 mg PO DAILY ondansetron 4 mg PO Q8H PRN HPI Comments Details: 44-year-old female here today for initial evaluation of hyperthyroidism secondary to Graves disease. Was complaining of shakiness , hot flashes , abd pain which promted the blood work. Labs from 10/10/2024 showed TSH suppressed, free T4 elevated at 3.56. Labs repeated 11/04/2024 again showed TSH was low at 0.01, free T4 elevated at 3.45, free T3 elevated to greater than 20, TSI antibodies elevated at 316, TPO antibodies elevated at 719 and TSH receptor antibody elevated at 25.1. Ultrasound of the thyroid done 12/08/2024 showed heterogenous gland with increased vascularity. Palpitation when laying down in bed since Sep 2024, intermittent. Shakiness overall. Hot flashes daily. Feels weak, intermittent fatigue. No diarrhea or constipation .LMP: 12/17/24 , monthly. Sexually active. using condoms. ?Having intermittent eye pain around the orbit. No teariness. Intermittent blurriness. No redness. Feels eye have become more prominent in a few months. Reports increased anxiety. Lost 20 lbs since Sep No preceding viral infection. No contrast exposure. Patient denies any difficulty swallowing, pain on swallowing or voice changes . Does have feeling of fullness in the neck. Feels winded with movement . Patient denies any history of childhood neck radiation. Denies having ever used lithium, amiodarone or biotin supplements. Patient denies any family history of thyroid cancer. Maternal aunt has thyroid disease. 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 Physical exam General: sitting comfortably in no acute distress HEENT: normocephalic/atraumatic, EOM intact, no lid lag, exophthalmos noted Neck: supple, enlarged thyroid gland palpable Cardiac: normal heart sounds, tachycardic Pulm: normal breath sounds B/L, no added breath sounds Abd: not distended, no tenderness Extremities: no edema, no signs of myxedema Laboratory Tests 05/04/23 10/10/24 11/04/24 07:21 08:48 07:35 TSH 1.49 < 0.01 L 0.01 L Free T4 3.56 H 3.45 H Free T3 >20.0 H Reverse T3 82 H Thyroid Stim Immunoglob 316 H Thyroid Peroxidase Ab 719 H TSH Receptor Ab 25.11 H EXAMINATION: US THYROID 12/08/24 HISTORY: E05.90 - Thyrotoxicosis, unspecified without thyrotoxic crisis or storm TECHNIQUE: Real-time grayscale ultrasound imaging was performed and images were reviewed. COMPARISON: There are no prior studies for comparison. FINDINGS: SIZE: The right thyroid lobe measures 6.1 x 2.7 x 2.4 cm. The left thyroid lobe measures 5.7 x 2.2 x 2.5 cm. The isthmus measures 6 mm. FLOW: Flow to the gland is increased. ECHOGENICITY: The echotexture of the gland is heterogeneous. NODULES: No discrete nodules are identified. [facility] Medical History (Updated 12/19/24 @ 10:54 by Francisca Orellana MD) Graves disease Surgical History H/O right inguinal hernia repair History of appendectomy Family History Mother Diabetes Seizure disorder Son No problems noted. Son Autism Daughter No problems noted. Brother No problems noted. Social History Household Members: Family Housing: Apartment Alcohol intake: current Alcohol intake frequency: a few times a week Alcohol type: wine Patient Tobacco Use Status: Never used Tobacco e-Cigarette/Vaping Use: Never Used Second Hand Smoke Exposure: No Current occupational status: employed Cognitive needs: No Hearing needs: No Vision needs: No Female Reproductive History Menstrual Age of Menarche: 13 Assessment & Plan Assessment & Plan (1) Hyperthyroidism: Code(s): E05.90 - Thyrotoxicosis, unspecified without thyrotoxic crisis or storm Category: Medical Plan: 44-year-old female coming in today for initial evaluation of hyperthyroidism in the setting of Graves disease. Labs from 10/10/2024 showed TSH suppressed, free T4 elevated at 3.56. Labs repeated 11/04/2024 again showed TSH was low at 0.01, free T4 elevated at 3.45, free T3 elevated to greater than 20, TSI antibodies elevated at 316, TPO antibodies elevated at 719 and TSH receptor antibody elevated at 25.1. Ultrasound of the thyroid done 12/08/2024 showed heterogenous gland with increased vascularity. Labs consistent with Graves disease. At this time patient is also quite symptomatic and tachycardic, we will put her on both methimazole 10 mg daily as well as atenolol 25 mg daily. LFTs also noted to be mildly elevated from September 2024 again this is due to thyrotoxicosis. We will get a baseline today as well before starting the medication. Patient is currently sexually active but uses condoms. Discussed teratogenic effects of methimazole and atenolol and discussed importance of contraception. Discussed with patient that about 30% of the patients have remission after 12-18 months of treatment with methimazole. More recent data has shown longer periods of treatment resulting in better remission rates as well. At this time we will plan to continue treatment with methimazole and continue adjusting the dose as needed. In the long run if she does not have remission, we also briefly discussed definitive therapy options of radioactive iodine ablation and total thyroidectomy and the need for requiring long-term levothyroxine therapy after those procedures. The following were discussed as potential side effects of methimazole: - Serious skin rashes - nausea, vomiting, or severe hepatic injury - Agranulocytosis: a rare side effect of methimazole involves a severe decrease in the production of white blood cells. This condition is extremely serious, but affects only one out of every 200 to 500 people who take an antithyroid drug. Agranulocytosis more commonly occurs within the first three months of starting treatment with an antithyroid drug, but can occur at any time. If patient develops a fever (temperature above 100.5F), or other signs or symptoms of infection, she should stop taking the tapazole and immediately have a complete blood count (CBC) done. Serious and potentially life threatening infections, or even , can occur before agranulocytosis resolves. However, once the antithyroid drug is stopped, agranulocytosis usually resolves within a week. - Arthralgias, myalgias - Renal: Nephritis - Fever Patient will stop medication and call our office if these occur. Patient also has eye symptoms concerning for Graves orbitopathy. We will place referral for Ophthalmology. Plan: -Do blood work today, this is just to establish a baseline at where we are starting on the medicine Start methimazole 10 mg daily Start atenolol 25 mg daily Do repeat blood work in 6 weeks Follow up in 7 weeks Referral placed for ophthalmology evaluation with Dr. Jared Oscar (2) Graves disease: Code(s): E05.00 - Thyrotoxicosis with diffuse goiter without thyrotoxic crisis or storm Category: Medical Plan: See above Plan I spent 45 minutes in reviewing the record, seeing the patient and documenting in the medical record. Orders: Orders Thyroid Stimulating Hormone Today E05.00 - Thyrotoxicosis with diffuse goiter without thyrotoxic crisis or storm, E05.90 - Thyrotoxicosis, unspecified without thyrotoxic crisis or storm Free T4 (Free Thyroxine) Today E05.00 - Thyrotoxicosis with diffuse goiter without thyrotoxic crisis or storm, E05.90 - Thyrotoxicosis, unspecified without thyrotoxic crisis or storm Liver Panel Today E05.00 - Thyrotoxicosis with diffuse goiter without thyrotoxic crisis or storm, E05.90 - Thyrotoxicosis, unspecified without thyrotoxic crisis or storm Triiodothyronine T3 Total Today E05.00 - Thyrotoxicosis with diffuse goiter without thyrotoxic crisis or storm, E05.90 - Thyrotoxicosis, unspecified without thyrotoxic crisis or storm Complete Blood Count Auto Diff Today E05.00 - Thyrotoxicosis with diffuse goiter without thyrotoxic crisis or storm, E05.90 - Thyrotoxicosis, unspecified without thyrotoxic crisis or storm Referrals Ophthalmology Referral E05.00 - Thyrotoxicosis with diffuse goiter without thyrotoxic crisis or storm Medications: New methimazole 10 mg PO DAILY 30 tabs 4RF atenolol 25 mg PO DAILY 30 tabs 2RF Patient Instructions: Do blood work today, this is just to establish a baseline at where we are starting on the medicine Start methimazole 10 mg daily Start atenolol 25 mg daily Do repeat blood work in 6 weeks Follow up in 7 weeks Methimazole as it is teratogenic medication, you can not get while being on this medicine. This is harmful to the baby and causes severe congenital defects. The following were discussed as potential side effects of methimazole: - Serious skin rashes - nausea, vomiting, or severe hepatic injury - Agranulocytosis: a rare side effect of methimazole involves a severe decrease in the production of white blood cells. This condition is extremely serious, but affects only one out of every 200 to 500 people who take an antithyroid drug. Agranulocytosis more commonly occurs within the first three months of starting treatment with an antithyroid drug, but can occur at any time. If patient develops a fever (temperature above 100.5F), or other signs or symptoms of infection, she should stop taking the tapazole and immediately have a complete blood count (CBC) done. Serious and potentially life threatening infections, or even , can occur before agranulocytosis resolves. However, once the antithyroid drug is stopped, agranulocytosis usually resolves within a week. - Arthralgias, myalgias - Renal: Nephritis - Fever Patient will stop medication and call our office if these occur. See eye doctor Dr. Jared Oscar, we sent a referral Coding Level of Care Code New Pt Level 4 (60341) Diagnoses Hyperthyroidism E05.90 Graves disease E05.00 Time Spent (min) 45
[2024-12-19 10:48] VITALS: BP 116/70; PULSE 117; O2SAT 100; BMI 24.8
== END 2024-12-19 11:36 | disposition home or self-care (01) ==
LOC: HO.ENCR 10:47
PROVIDERS: Visit Provider Student in an Organized Health Care Education/Training Program
DX: E05.90 Thyrotoxicosis, unspecified without thyrotoxic crisis or storm (principal); E05.00 Thyrotoxicosis with diffuse goiter without thyrotoxic crisis or storm
CPT/HCPCS: 99204

== ENCOUNTER 2024-12-19 10:46 | Outpatient (REF) | payer BC, SELFPAY ==
[2024-12-19 11:57] LABS: MANUAL DIFF FLAG NO
[2024-12-19 12:19] LABS: Basophils Percent Auto 0.1 % (0-2); Eosinophils Percent Auto 0.5 % (0-4); Hematocrit 34.2 % (37.0-47.0); Hemoglobin 10.5 g/dl (12.0-16.0); Imm Gran Abs Auto 0.02 X10*3/uL (0.00-0.03); Imm Gran Pct Auto 0.2 % (0.0-0.4); Lymphocytes Absolute Auto 1.4 X10*3/uL (1.2-4.9); Lymphocytes Percent Auto 17.3 % (20-40); Mean Corpuscular HGB Conc 30.7 g/dl (31.0-35.0); Mean Corpuscular Hemoglobin 22.2 pg (27.0-33.0); Mean Corpuscular Volume 72.5 fL (80.0-98.0); Mean Platelet Volume 9.3 fL (9.4-12.3); Monocytes Absolute Auto 0.5 X10*3/uL (0.1-1.2); Monocytes Percent Auto 6.4 % (2-11); Neutrophils Absolute Auto 6.1 x10*3/uL (2.0-8.3); Neutrophils Percent Auto 75.5 % (45-73); Platelet Count 226 X10*3/uL (160-400); Red Blood Count 4.72 X10*6/uL (4.20-5.50); Red Cell Distribution Width 17.4 % (11.0-16.0); White Blood Count 8.1 X10*3/uL (4.8-10.8)
[2024-12-19 13:13] LABS: Alanine Aminotransferase 18 U/L (0-31); Albumin Level 3.8 g/dL (3.5-5.0); Alkaline Phosphatase 98 U/L (39-117); Aspartate Amino Transferase 23 U/L (5-31); Bilirubin Direct 0.2 mg/dL (0.0-0.5); Bilirubin Total 0.5 mg/dL (0.0-1.0); Free T4 (Free Thyroxine) 3.41 ng/dL (0.71-1.85); Thyroid Stimulating Hormone 0.01 uIU/mL (0.32-4.0); Total Protein 6.9 g/dL (6.5-8.0)
[2024-12-20 18:14] LABS: Triiodothyronine T3 Total 481 ng/dL (76-181)
== END 2024-12-19 10:47 | disposition home or self-care (01) ==
LOC: HO.LAB 10:46
PROVIDERS: Visit Provider Student in an Organized Health Care Education/Training Program
DX: E05.90 Thyrotoxicosis, unspecified without thyrotoxic crisis or storm (principal); E05.00 Thyrotoxicosis with diffuse goiter without thyrotoxic crisis or storm
CPT/HCPCS: 36415; 80076; 84439; 84443; 84480; 85025

== ENCOUNTER 2024-12-25 08:48 | Outpatient (REF) | payer BC, MEDICAID, SELFPAY ==
--- NOTE | ~2024-12-25 | FL_ITS ---
EXAMINATION: XR GI SERIES CLINICAL INFORMATION: Epigastric pain COMPARISON: None available. TECHNIQUE: Routine upper GI contrast study was performed in upright and lying position. FINDINGS: Following oral administration of thick barium and effervescent granules there are is normal propagation of bolus from the oral cavity through the pharynx, esophagus into stomach without any evidence of obstruction, narrowing or stricture. No laryngeal penetration or aspiration seen. No retention in the valleculae or piriform sinuses. On placing patient in supine and prone lying the course, caliber and peristalsis of the stomach, duodenal bulb and the CBD is normal. Mucosal pattern of the stomach and the duodenum is normal. There is mild increased secretions in the stomach with short gastroesophageal reflux but no hiatal hernia. FLUOROSCOPY TIME: 1 minute 48 seconds. DOSE AREA PRODUCT: 132 uGy-m2 (microgray-meter squared) FL/FL upper GI series IMPRESSION: Short gastroesophageal reflux with increased gastric secretions suggestive of hyper acidity. No hiatal hernia seen. Electronically signed by: Urban Busch MD 12/25/2024 09:49 AM EDT
== END 2024-12-25 08:49 | disposition home or self-care (01) ==
LOC: HO.XRAY 08:48
DX: R10.13 Epigastric pain (principal)
CPT/HCPCS: 74240

== ENCOUNTER → 2024-12-25 08:51 | Outpatient (BNV) | payer BC, MEDICAID, SELFPAY | PROVIDERS: Visit Provider Radiology Diagnostic Radiology | DX: R10.13 Epigastric pain (principal); K21.9 Gastro-esophageal reflux disease without esophagitis | CPT/HCPCS: 74246 ==

== ENCOUNTER 2024-12-26 10:27 | Emergency (ER) | payer BC, MEDICAID, SELFPAY ==
--- NOTE | 2024-12-26 | ECG_ITS ---
Test Reason : chest pain Blood Pressure : */* mmHG Vent. Rate : 78 BPM Atrial Rate : 78 BPM P-R Int : 154 ms QRS Dur : 76 ms QT Int : 382 ms P-R-T Axes : 71 -16 42 degrees QTcB Int : 435 ms Normal sinus rhythm Minimal voltage criteria for LVH, may be normal variant ( R in aVL ) Borderline ECG When compared with ECG of 06-Oct-2024 13:43, No significant change was found Referred By: Generic ED Physician Electronically Signed By: Minh Wong
--- NOTE | ~2024-12-26 | XR_ITS ---
EXAMINATION: XR CHEST 2 VIEWS HISTORY: cp COMPARISON: Comparison is made with the prior examination dated 04/22/2024. FINDINGS: PA and lateral views of the chest are submitted. The lungs are expanded and clear. There is no pleural effusion, pneumothorax, or pulmonary vascular congestion. The heart is normal in size. The bones are intact. XR/XR chest 2V IMPRESSION: No acute cardiopulmonary abnormality. Electronically signed by: Trevin Mcclain MD 12/26/2024 03:13 PM EDT
[2024-12-26 10:43] VITALS: BP 143/62; PULSE 87; RESP 20; TEMP 37.1; O2SAT 100; BMI 24.5
[2024-12-26 11:10] LABS: MANUAL DIFF FLAG NO
[2024-12-26 11:12] LABS: Basophils Percent Auto 0.4 % (0-2); Eosinophils Absolute Auto 0.1 X10*3/uL (0.0-0.4); Eosinophils Percent Auto 1.4 % (0-4); Hematocrit 34.1 % (37.0-47.0); Hemoglobin 10.8 g/dl (12.0-16.0); Imm Gran Abs Auto 0.01 X10*3/uL (0.00-0.03); Imm Gran Pct Auto 0.2 % (0.0-0.4); Lymphocytes Percent Auto 39.5 % (20-40); Mean Corpuscular HGB Conc 31.7 g/dl (31.0-35.0); Mean Corpuscular Hemoglobin 22.5 pg (27.0-33.0); Mean Corpuscular Volume 71.2 fL (80.0-98.0); Mean Platelet Volume 8.9 fL (9.4-12.3); Monocytes Absolute Auto 0.4 X10*3/uL (0.1-1.2); Monocytes Percent Auto 8.1 % (2-11); Neutrophils Absolute Auto 2.6 x10*3/uL (2.0-8.3); Neutrophils Percent Auto 50.4 % (45-73); Platelet Count 278 X10*3/uL (160-400); Red Blood Count 4.79 X10*6/uL (4.20-5.50); Red Cell Distribution Width 16.8 % (11.0-16.0); White Blood Count 5.1 X10*3/uL (4.8-10.8)
[2024-12-26 11:25] LABS: Alanine Aminotransferase 23 U/L (0-31); Albumin Level 3.7 g/dL (3.5-5.0); Alkaline Phosphatase 101 U/L (39-117); Anion Gap 10 (12-20); Aspartate Amino Transferase 24 U/L (5-31); Bilirubin Total 0.2 mg/dL (0.0-1.0); Blood Urea Nitrogen 13 mg/dL (9-16); Calcium 9.7 mg/dL (8.4-10.2); Carbon Dioxide 27 mmol/L (22-29); Chloride 108 mmol/L (96-108); Creatinine Clr Calc Pharmacy 135.7; Estimated Glomerular Filt Rate > 60; Glucose Random 113 mg/dL (60-115); Magnesium 1.8 mg/dL (1.6-2.6); Potassium 4.6 mmol/L (3.3-5.1); Sodium 140 mmol/L (135-145); Total Protein 6.8 g/dL (6.5-8.0)
[2024-12-26 11:46] LABS: TSH reflex Free T4 0.01 uIU/mL (0.32-4.0)
[2024-12-26 12:19] LABS: Free T4 (Free Thyroxine) 1.78 ng/dL (0.71-1.85)
[2024-12-26 13:57] VITALS: BP 120/63; PULSE 74; RESP 18; TEMP 36.7; O2SAT 99
--- NOTE | 2024-12-26 14:37 | PC.NURSE ---
pt is alert and oriented, skin wpd, respirations even and unlabored, pt reports right sided chest pain that started yesterday, pain is sharp and constant, pt reports that she needed to lift her hand up in the air yesterday to be able to take deep breaths because of the pain, pt reports just being started on atenolo and something for her thyroid levels about a week ago, vs stable and ns on the monitor
[2024-12-26 14:47] LABS: Troponin-I High Sensitivity < 2.7 ng/L (<3.5-17.0)
--- NOTE | 2024-12-26 14:55 | ED.CHESTPAIN ---
HPI - Chest Pain General Chief Complaint: Chest Pain Stated Complaint: chest pain Time Seen by Provider: 12/26/24 14:06 Source: patient, RN notes reviewed and old records reviewed Mode of arrival: ambulatory History of Present Illness ED Provider: Stacy León PA-C HPI narrative: 44-year-old female with PMHx new diagnosis of Graves disease/hyperthyroidism started on Methimazole and Atenolol 1 week ago, anxiety, depression, asthma presenting to ED c/o chest pain radiating to R shoulder since yesterday afternoon. describes CP is sharp, constant, & worse with inspiration & palpation. Also reports cough x 1 day and recent travel to [place] at end of October with intermittent lower extremity swelling since. Denies fever, headache, vision changes, N/V/D, dysuria, hematuria, changes in bowel habits, numbness/tingling, new wounds/rashes, trauma to the area, sick contacts. Related Data Previous Rx's ?Medication ?Instructions ?Recorded norethindrone (contraceptive) 0.35 0.35 mg PO DAILY #84 tabs 11/13/23 mg tablet albuterol sulfate 90 mcg/actuation 2 puff inhalation Q4-6H PRN 05/05/24 aerosol inhaler shortness of breath or wheezing #6.7 grams ferrous sulfate 325 mg (65 mg 325 mg PO DAILY #30 tabs 10/06/24 iron) tablet,delayed release ondansetron 4 mg disintegrating 4 mg PO Q8H PRN nausea and 10/06/24 tablet vomiting #20 tabs folic acid 1 mg tablet 1 mg PO DAILY #30 tabs 10/10/24 cholecalciferol (vitamin D3) 25 25 mcg PO DAILY #90 caps 10/14/24 mcg (1,000 unit) capsule atenolol 25 mg tablet 25 mg PO DAILY #30 tabs 12/19/24 methimazole 10 mg tablet 10 mg PO DAILY #90 tabs 12/19/24 Allergies Allergy/AdvReac Type Severity Reaction Status Date / Time No Known Allergies Allergy Verified 12/26/24 10:46 Review of Systems Review of Systems: Yes all other systems are reviewed and are negative Constitutional: Constitutional: Reports as per HPI Neurologic: Denies Abnormal speech present [facility] Past Medical History Attestation statement: The following information was validated with the patient. Source: old records reviewed Medical History Graves disease Surgical History H/O right inguinal hernia repair History of appendectomy Family History Family History Mother Diabetes Seizure disorder Son No problems noted. Son Autism Daughter No problems noted. Brother No problems noted. Social History Social History Household Members: Family Housing: Apartment Alcohol intake: current Alcohol intake frequency: a few times a week Alcohol type: wine Patient Tobacco Use Status: Never used Tobacco e-Cigarette/Vaping Use: Never Used Second Hand Smoke Exposure: No Current occupational status: employed Cognitive needs: No Hearing needs: No Vision needs: No Physical Exam Vital Signs: Vital Signs: Last Vital Signs Temp 0 F L 12/26/24 16:21 Pulse 79 12/26/24 16:21 Resp 14 12/26/24 16:21 BP 120/48 L 12/26/24 16:21 Pulse Ox 100 12/26/24 16:21 O2 Del Method Room Air 12/26/24 16:21 BMI result Body Mass Index 24.5 Const: General: cooperative, healthy appearing, no acute distress, alert and awake Orientation/consciousness: patient oriented x3 Limitations: no limitations HEENT: Head: Yes normal to inspection and Yes atraumatic Ears: hearing grossly normal bilaterally General nose exam: Normal external nose present Face and sinus: Yes normal facial exam Mouth: oropharynx normal and moist mucous membranes Throat: Yes posterior oropharynx normal Eyes: General: appearance normal, both eyes and all related structures EOM: EOMs intact bilaterally Neck: Neck: Yes normal visual inspection and Yes no meningeal signs Chest: Other: anterior chest wall without erythema/ecchymosis or deformity. + reproducible ttp. Neurovascularly intact Chest palpation & inspection: normal inspection of the chest and tenderness Resp: Effort & Inspection: normal respiratory effort, no respiratory distress and no stridor Auscultation: clear to auscultation bilaterally, no crackles, no rales and no wheezes Cardio: Rate: regular rate Heart sounds: S1 normal heart sound present and S2 normal heart sound present GI: Inspection: Yes normal to inspection and No abdominal wall ecchymosis Palpation (GI): Soft to palpation, nontender, no guarding and not rigid : General: Yes no CVA tenderness Back/Spine/Pelvis: Back: no CVA tenderness Skin: Rashes: no rashes Wounds: no wounds Neuro: General: patient oriented x3, tone normal, moves all extremities, no meningeal signs, no focal motor deficits and CN's II-XI intact bilaterally Cranial nerves: Yes CN's II-XII intact bilaterally and Yes Bilaterally intact EOM present Cognition (Neuro): normal cognition Speech: No Abnormal speech present Gait exam (Neuro): Normal gait present Extrem: General: Yes normal to inspection, Yes no pedal edema and Yes no calf tenderness Course Course Course Narrative: - labs reassuring. Troponin negative, mi unlikely. - D-dimer negative, PE/ DVT unlikely XR chest 2V IMPRESSION: No acute cardiopulmonary abnormality. - viral testing negative Results discussed with patient including worrisome signs and symptoms and strict return precautions, and when to return to the emergency department. They verbalized understanding and feel safe for discharge at this time. Medications Administered Discontinued Medications Generic Name Dose Route Start Last Admin Trade Name Freq PRN Reason Stop Dose Admin Ketorolac Tromethamine 30 mg 12/26/24 14:54 12/26/24 15:10 Ketorolac Tromethamine 30 Mg/Ml Vial IM 12/26/24 14:55 30 mg ONCE ONE Administration Medical Decision Making Medical Decision Making [facility] Narrative: 44-year-old female with PMHx new diagnosis of Graves disease/hyperthyroidism started on Methimazole and Atenolol 1 week ago, anxiety, depression, asthma presenting to ED c/o chest pain radiating to R shoulder since yesterday afternoon. On exam vital signs stable, NAD, nontoxic appearing physical exam with reproducible tenderness over chest wall. Lungs CTA. Concern for ACS vs newly diagnosed hyperthyroidism vs costochondritis / MSK pain/strain vs viral illness vs DVT/PE vs electrolyte/metabolic disturbance. Lower suspicion for AAA, aortic dissection, pneumothorax, pneumonia. Plan: labs, SARS, EKG, CXR Differential Diagnosis Differential Diagnoses: The differential diagnosis associated with the presentation includes As above Admission/Observation Consideration of admission/observation: Escalation of care including admission/observation considered Lab Data [facility] Lab Attestation statement: I reviewed the patient's lab results. 12/26/24 11:06 12/26/24 11:06 Labs: Lab Results 12/26/24 12/26/24 12/26/24 Range/Units 11:06 14:14 15:20 WBC 5.1 (4.8-10.8) X10*3/uL RBC 4.79 (4.20-5.50) X10*6/uL Hgb 10.8 L (12.0-16.0) g/dl Hct 34.1 L (37.0-47.0) % MCV 71.2 L (80.0-98.0) fL MCH 22.5 L (27.0-33.0) pg MCHC 31.7 (31.0-35.0) g/dl RDW 16.8 H (11.0-16.0) % Plt Count 278 (160-400) X10*3/uL MPV 8.9 L (9.4-12.3) fL Immature Gran % (Auto) 0.2 (0.0-0.4) % Neut % (Auto) 50.4 (45-73) % Lymph % (Auto) 39.5 (20-40) % [place] % (Auto) 8.1 (2-11) % Eos % (Auto) 1.4 (0-4) % Baso % (Auto) 0.4 (0-2) % Lymph # (Auto) 2.0 (1.2-4.9) X10*3/uL [place] # (Auto) 0.4 (0.1-1.2) X10*3/uL Eos # (Auto) 0.1 (0.0-0.4) X10*3/uL Baso # (Auto) 0.0 (0.0-0.2) X10*3/uL Abs Immat Gran (auto) 0.01 (0.00-0.03) X10*3/uL Absolute Neuts (auto) 2.6 (2.0-8.3) x10*3/uL Absolute Nucleated RBC 0.000 (0.0-0.012) X10*3/uL Nucleated RBC % (auto) 0.0 (0.0-0.2) /100WBC D-Dimer High Sensitivty < 150 NG/ML Sodium 140 (135-145) mmol/L Potassium 4.6 (3.3-5.1) mmol/L Chloride 108 (96-108) mmol/L Carbon Dioxide 27 (22-29) mmol/L Anion Gap 10 L (12-20) BUN 13 (9-16) mg/dL Creatinine 0.50 (0.5-1.4) mg/dL Estim Creat Clear Calc 135.7 Estimated GFR > 60 Random Glucose 113 (60-115) mg/dL Calcium 9.7 (8.4-10.2) mg/dL Magnesium 1.8 (1.6-2.6) mg/dL Total Bilirubin 0.2 (0.0-1.0) mg/dL AST 24 (5-31) U/L ALT 23 (0-31) U/L Alkaline Phosphatase 101 (39-117) U/L Troponin I High Sens < 2.7 (<3.5-17.0) ng/L Total Protein 6.8 (6.5-8.0) g/dL Albumin 3.7 (3.5-5.0) g/dL TSH 0.01 L (0.32-4.0) uIU/mL Free T4 1.78 (0.71-1.85) ng/dL Influenza Type A (PCR) NEGATIVE (Negative) Influenza Type B (PCR) NEGATIVE (Negative) RSV RNA Qual (PCR) NEGATIVE (Negative) SARS-CoV-2 RNA (RT-PCR) NEGATIVE (Negative) Independent Interpretation I performed an independent interpretation of an: EKG ( My interpretation EKG normal sinus rhythm rate of 78. CT interval 154. QTC 435. No significant change when compared to prior. No STEMI) and Plain X-Ray Radiology Impression Discussion of test interpretation with radiology: I have reviewed the radiologist's reading. External Record Review External record reviewed: Inpatient record, Office record, Outpatient record, Prior outpatient labs, Prior outpatient radiology, Primary care record and Outside ED record Tests considered The following testing was considered but not selected: As above Prescription Management I considered prescription management with: Other Chronic Conditions Patient?s care impacted by: Other Social Determinants Patient?s care significantly limited by Social Determinants of Health including: Other Social Determinant of Health Discharge Plan Discharge Clinical Impression: Atypical chest pain, Costochondritis Patient Disposition: Home, Self-Care Instructions: Costochondritis (ED), Noncardiac Chest Pain (ED) Additional Instructions: your blood work is reassuring. Your x-rays unremarkable You tested negative for COVID, flu, RSV Please continue previously prescribed medications and follow-up with your satellite instruction facilitator as well as Cardiology, call to make an appointment If her symptoms persist or worsen or pain is unbearable, you have shortness of breath or weakness, persistent swelling in her legs return to the ED Prescriptions: No Action folic acid 1 mg tablet 1 mg PO DAILY Qty: 30 0RF cholecalciferol (vitamin D3) 25 mcg (1,000 unit) capsule 25 mcg PO DAILY Qty: 90 3RF methimazole 10 mg tablet 10 mg PO DAILY Qty: 90 1RF ferrous sulfate 325 mg (65 mg iron) tablet,delayed release (DR/EC) 325 mg PO DAILY Qty: 30 0RF ondansetron 4 mg tablet,disintegrating 4 mg PO Q8H PRN (Reason: nausea and vomiting) Qty: 20 0RF albuterol sulfate 90 mcg/actuation HFA aerosol inhaler 2 puff inhalation Q4-6H PRN (Reason: shortness of breath or wheezing) Qty: 6.7 0RF norethindrone (contraceptive) 0.35 mg tablet 0.35 mg PO DAILY Qty: 84 3RF Rx Instructions: Start at the beginning of the next menses atenolol 25 mg tablet 25 mg PO DAILY Qty: 30 2RF Referrals: [facility] [Provider Group] [facility] Endocrinology [Provider Group] Chantal Cardona PA-C [Primary Care Provider] - 5 days Interventions: ED Discharge Assessment Last Done: 12/26/24 16:21 Discharge Date/Time: 12/26/24 16:22 Print Language: Swedish
[2024-12-26 15:00] VITALS: BP 120/48; PULSE 79; RESP 14; O2SAT 100
[2024-12-26] MEDS: Ketorolac Tromethamine 30 MG/ML VIAL IM (15:10)
[2024-12-26 15:44] LABS: D Dimer High Sensitivity < 150 NG/ML
[2024-12-26 16:05] LABS: Influenza A PCR NEGATIVE (Negative); Influenza B PCR NEGATIVE (Negative); Resp Syncy Virus RNA Qual PCR NEGATIVE (Negative); SARS COV2 PCR INHOUSE NEGATIVE (Negative)
[2024-12-26 16:21] VITALS: BP 120/48; PULSE 79; RESP 14; TEMP -17.7; TEMP 0; O2SAT 100
== END 2024-12-26 16:22 | disposition home or self-care (01) ==
PROVIDERS: Nurse Practitioner Family; Physician Assistant; Emergency Provider Emergency Medicine Emergency Medical Services
DX: R07.89 Other chest pain (principal); M25.511 Pain in right shoulder; M94.0 Chondrocostal junction syndrome [Tietze]; R60.0 Localized edema; Z79.899 Other long term (current) drug therapy; Z03.818 Encounter for observation for suspected exposure to other biological agents ruled out
CPT/HCPCS: 0241U; 36415; 71046; 80053; 83735; 84439; 84443; 84484; 85025; 85379; 93005; 96372; 99284; 99285; J1885

== ENCOUNTER → 2024-12-26 10:33 | Outpatient (BNV) | payer BC, MEDICAID, SELFPAY | PROVIDERS: Emergency Provider Emergency Medicine Emergency Medical Services; Visit Provider Internal Medicine Cardiovascular Disease | DX: R07.9 Chest pain, unspecified (principal) | CPT/HCPCS: 93010 ==

== ENCOUNTER → 2024-12-26 14:54 | Outpatient (BNV) | payer BC, MEDICAID, SELFPAY | PROVIDERS: Visit Provider Radiology Diagnostic Radiology | DX: R07.9 Chest pain, unspecified (principal) | CPT/HCPCS: 71046 ==

== ENCOUNTER 2025-02-06 10:24 | Outpatient (REF) | payer BC, MEDICAID, SELFPAY ==
[2025-02-06 12:36] LABS: Alanine Aminotransferase 12 U/L (0-31); Alkaline Phosphatase 130 U/L (39-117); Aspartate Amino Transferase 19 U/L (5-31); Bilirubin Direct 0.1 mg/dL (0.0-0.5); Bilirubin Total 0.4 mg/dL (0.0-1.0); Total Protein 6.9 g/dL (6.5-8.0)
[2025-02-06 12:57] LABS: Free T4 (Free Thyroxine) 1.71 ng/dL (0.71-1.85); Thyroid Stimulating Hormone 0.01 uIU/mL (0.32-4.0)
[2025-02-07 08:53] LABS: Triiodothyronine T3 Total 270 ng/dL (76-181)
== END 2025-02-06 10:25 | disposition home or self-care (01) ==
LOC: HO.LAB 10:24
PROVIDERS: Visit Provider Student in an Organized Health Care Education/Training Program
DX: E05.90 Thyrotoxicosis, unspecified without thyrotoxic crisis or storm (principal); E05.00 Thyrotoxicosis with diffuse goiter without thyrotoxic crisis or storm
CPT/HCPCS: 36415; 80076; 84439; 84443; 84480

== ENCOUNTER 2025-02-06 10:24 | Outpatient (AMB) | payer BC, SELFPAY ==
[2025-02-06 10:31] VITALS: BP 130/66; PULSE 70; O2SAT 98; BMI 25.4
--- NOTE | 2025-02-06 10:31 | A.OFFVIS_ITS ---
Vital Signs 02/06/25 10:31 Height 5 ft 6 in Weight 157 lb 6.561 oz BMI 25.4 BP 130/66 Blood Pressure Location Lt brachial Position Sitting Pulse 70 Pulse Source Pulse Oximeter Pulse Oximetry (%) 98 Oxygen Delivery Method Room Air Intake Visit Reasons: Thyrotoxicosis, unspec w/o thyrotoxic crisis/storm Intake Note: Patient present today for Thyrotoxicosis, unspecified w/o thyrotoxic crisis/storm. Data Lead Required: No Accompanied by: Self / Same As Patient Allergies No Known Allergies Allergy (Verified 02/06/25 10:34) Medication List - Last Reconciled 02/06/25 by Francisca Orellana MD albuterol sulfate 90 mcg/actuation 2 puffs inhalation Q4-6H PRN atenolol 25 mg PO DAILY cholecalciferol (vitamin D3) 25 mcg PO DAILY ferrous sulfate 325 mg PO DAILY folic acid 1 mg PO DAILY methimazole 10 mg PO DAILY norethindrone (contraceptive) 0.35 mg PO DAILY ondansetron 4 mg PO Q8H PRN HPI Comments Details: 44-year-old female here today for follow up of hyperthyroidism secondary to Gra ves disease. Was complaining of shakiness , hot flashes , abd pain which promted the blood work. Labs from 10/10/2024 showed TSH suppressed, free T4 elevated at 3.56. Labs repeated 11/04/2024 again showed TSH was low at 0.01, free T4 elevated at 3.45, free T3 elevated to greater than 20, TSI antibodies elevated at 316, TPO antibodies elevated at 719 and TSH receptor antibody elevated at 25.1. Ultrasound of the thyroid done 12/08/2024 showed heterogenous gland with increased vascularity. Palpitation when laying down in bed since Sep 2024, intermittent. Shakiness overall. Hot flashes daily. Feels weak, intermittent fatigue. No diarrhea or constipation .LMP: 12/17/24 , monthly. Sexually active. using condoms. ?Having intermittent eye pain around the orbit. No teariness. Intermittent blurriness. No redness. Feels eye have become more prominent in a few months. Reports increased anxiety. Lost 20 lbs since Sep No preceding viral infection. No contrast exposure. Patient denies any difficulty swallowing, pain on swallowing or voice changes . Does have feeling of fullness in the neck. Feels winded with movement . Patient denies any history of childhood neck radiation. Denies having ever used lithium, amiodarone or biotin supplements. Patient denies any family history of thyroid cancer. Maternal aunt has thyroid disease. 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 Hot flashes, anxiety , tiredness improved. Physical exam General: sitting comfortably in no acute distress HEENT: normocephalic/atraumatic, EOM intact, no lid lag, exophthalmos noted Neck: supple, enlarged thyroid gland palpable Cardiac: normal heart sounds, tachycardic Pulm: normal breath sounds B/L, no added breath sounds Abd: not distended, no tenderness Extremities: no edema, no signs of myxedema Laboratory Tests 05/04/23 10/10/24 11/04/24 07:21 08:48 07:35 TSH 1.49 < 0.01 L 0.01 L Free T4 3.56 H 3.45 H Free T3 >20.0 H Reverse T3 82 H Thyroid Stim Immunoglob 316 H Thyroid Peroxidase Ab 719 H TSH Receptor Ab 25.11 H Laboratory Tests 12/19/24 12/26/24 11:55 11:06 TSH 0.01 L 0.01 L Free T4 3.41 H 1.78 Total T3 481 H EXAMINATION: US THYROID 12/08/24 HISTORY: E05.90 - Thyrotoxicosis, unspecified without thyrotoxic crisis or storm TECHNIQUE: Real-time grayscale ultrasound imaging was performed and images were reviewed. COMPARISON: There are no prior studies for comparison. FINDINGS: SIZE: The right thyroid lobe measures 6.1 x 2.7 x 2.4 cm. The left thyroid lobe measures 5.7 x 2.2 x 2.5 cm. The isthmus measures 6 mm. FLOW: Flow to the gland is increased. ECHOGENICITY: The echotexture of the gland is heterogeneous. NODULES: No discrete nodules are identified. [facility] Medical History Graves disease Surgical History H/O right inguinal hernia repair History of appendectomy Family History Mother Diabetes Seizure disorder Son No problems noted. Son Autism Daughter No problems noted. Brother No problems noted. Social History Household Members: Family Housing: Apartment Alcohol intake: current Alcohol intake frequency: a few times a week Alcohol type: wine Patient Tobacco Use Status: Never used Tobacco e-Cigarette/Vaping Use: Never Used Second Hand Smoke Exposure: No Current occupational status: employed Cognitive needs: No Hearing needs: No Vision needs: No Female Reproductive History Menstrual Age of Menarche: 13 Physical Exam Vital Signs: Last Vital Signs Pulse 70 02/06/25 10:31 BP 130/66 02/06/25 10:31 Pulse Ox 98 02/06/25 10:31 Oxygen Delivery Method Room Air 02/06/25 10:31 BMI result Body Mass Index 25.4 Assessment & Plan Assessment & Plan (1) Hyperthyroidism: Code(s): E05.90 - Thyrotoxicosis, unspecified without thyrotoxic crisis or storm Category: Medical Plan: 44-year-old female coming in today for initial evaluation of hyperthyroidism in the setting of Graves disease. Labs from 10/10/2024 showed TSH suppressed, free T4 elevated at 3.56. Labs repeated 11/04/2024 again showed TSH was low at 0.01, free T4 elevated at 3.45, free T3 elevated to greater than 20, TSI antibodies elevated at 316, TPO antibodies elevated at 719 and TSH receptor antibody elevated at 25.1. Ultrasound of the thyroid done 12/08/2024 showed heterogenous gland with increased vascularity. Labs consistent with Graves disease. 12/19/2024: Started on methimazole 10 mg daily as well as atenolol 25 mg daily. LFTs also noted to be mildly elevated from September 2024 again this is due to thyrotoxicosis. Labs done at baseline 12/19/2024 showed normal LFTs. She was supposed to get blood work done prior to this appointment, she forgot to get that. Blood work done 12/26/2024 when she had presented to the ED with a atypical chest pain showed TSH was still low at 0.01, however free T4 had improved. We will repeat labs today. Patient is currently sexually active but uses condoms. Discussed teratogenic effects of methimazole and atenolol and discussed importance of contraception. Discussed with patient that about 30% of the patients have remission after 12-18 months of treatment with methimazole. More recent data has shown longer periods of treatment resulting in better remission rates as well. At this time we will plan to continue treatment with methimazole and continue adjusting the dose as needed. In the long run if she does not have remission, we also briefly discussed definitive therapy options of radioactive iodine ablation and total thyroidectomy and the need for requiring long-term levothyroxine therapy after those procedures. The following were discussed as potential side effects of methimazole: - Serious skin rashes - nausea, vomiting, or severe hepatic injury - Agranulocytosis: a rare side effect of methimazole involves a severe decrease in the production of white blood cells. This condition is extremely serious, but affects only one out of every 200 to 500 people who take an antithyroid drug. Agranulocytosis more commonly occurs within the first three months of starting treatment with an antithyroid drug, but can occur at any time. If patient develops a fever (temperature above 100.5F), or other signs or symptoms of infection, she should stop taking the tapazole and immediately have a complete blood count (CBC) done. Serious and potentially life threatening infections, or even , can occur before agranulocytosis resolves. However, once the antithyroid drug is stopped, agranulocytosis usually resolves within a week. - Arthralgias, myalgias - Renal: Nephritis - Fever Patient will stop medication and call our office if these occur. Patient also has eye symptoms concerning for Graves orbitopathy. We placed referral for Ophthalmology. She has not been able to schedule an appointment because of her busy schedule, reiterated to her importance of seeing them. Plan: -Do blood work today, TSH, free T4, total T3, liver panel, we will communicate results Continue methimazole 10 mg daily Reduce atenolol 25 mg daily to every other day and then you can take it twice or thrice a week for a week if still no palpitations and then stop it. Follow up in 3 months Establish with ophthalmology evaluation with Dr. Jared Oscar (2) Graves disease: Code(s): E05.00 - Thyrotoxicosis with diffuse goiter without thyrotoxic crisis or storm Category: Medical Plan: See above Plan See above Orders: Orders Thyroid Stimulating Hormone Today E05.00 - Thyrotoxicosis with diffuse goiter without thyrotoxic crisis or storm, E05.90 - Thyrotoxicosis, unspecified without thyrotoxic crisis or storm Free T4 (Free Thyroxine) Today E05.00 - Thyrotoxicosis with diffuse goiter without thyrotoxic crisis or storm, E05.90 - Thyrotoxicosis, unspecified without thyrotoxic crisis or storm Triiodothyronine T3 Total Today E05.00 - Thyrotoxicosis with diffuse goiter without thyrotoxic crisis or storm, E05.90 - Thyrotoxicosis, unspecified without thyrotoxic crisis or storm Liver Panel Today E05.00 - Thyrotoxicosis with diffuse goiter without thyrotoxic crisis or storm, E05.90 - Thyrotoxicosis, unspecified without t hyrotoxic crisis or storm Patient Instructions: continue methimazole 10 mg daily Do blood work today ,w gerri will reach out with results letting you know if a dose chnage is needed Taper atenelol off slowly if you feel good off it Follow up in 3 months Call Ameena Oscar's office to make appointment Discussed teratogenic effects of methimazole and atenolol and discussed importance of contraception. The following were discussed as potential side effects of methimazole: - Serious skin rashes - nausea, vomiting, or severe hepatic injury - Agranulocytosis: a rare side effect of methimazole involves a severe decrease in the production of white blood cells. This condition is extremely serious, but affects only one out of every 200 to 500 people who take an antithyroid drug. Agranulocytosis more commonly occurs within the first three months of starting treatment with an antithyroid drug, but can occur at any time. If patient de velops a fever (temperature above 100.5F), or other signs or symptoms of infection, she should stop taking the tapazole and immediately have a complete blood count (CBC) done. Serious and potentially life threatening infections, or even , can occur before agranulocytosis resolves. However, once the antithyroid drug is stopped, agranulocytosis usually resolves within a week. - Arthralgias, myalgias - Renal: Nephritis - Fever Coding Level of Care Code Est Pt Level 3 (96812) Diagnoses Hyperthyroidism E05.90 Graves disease E05.00
== END 2025-02-06 11:03 | disposition home or self-care (01) ==
LOC: HO.ENCR 10:25
PROVIDERS: Visit Provider Student in an Organized Health Care Education/Training Program
DX: E05.90 Thyrotoxicosis, unspecified without thyrotoxic crisis or storm (principal); E05.00 Thyrotoxicosis with diffuse goiter without thyrotoxic crisis or storm
CPT/HCPCS: 99213

== ENCOUNTER 2025-02-11 13:53 | Outpatient (REF) | payer BC, SELFPAY ==
[2025-02-12 03:24] LABS: Immunoglobulin A 98 mg/dL (47-310); Immunoglobulin G 1379 mg/dL (600-1640)
[2025-02-12 18:49] LABS: Transglutaminase IgA <1.0 U/mL
== END 2025-02-11 13:54 | disposition home or self-care (01) ==
LOC: HO.LAB 13:53
PROVIDERS: Visit Provider Internal Medicine
DX: R10.13 Epigastric pain (principal)
CPT/HCPCS: 36415; 82784; 86364

== ENCOUNTER 2025-02-11 13:53 | Outpatient (AMB) | payer BC, MEDICAID, SELFPAY ==
--- NOTE | 2025-02-11 14:01 | MHC.OFFVIS ---
Vital Signs 02/11/25 14:03 Height 5 ft 6 in Weight 152 lb 1.903 oz BMI 24.5 BP 113/49 L Blood Pressure Location Lt brachial Position Sitting Pulse 83 Intake Visit Reasons: Abdominal Pains Intake Note: Fernando presents in the office as a new patient for abdominal pains. CC: She states she was having pains in the epigatric region - she states that it has gone away but when she was put on the medication for thyroid it eased up. 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 Reports started having abd pain end of Aug 2024 assoc with N/V. Describes as central pressure and discomfort in epigastrium unrelated to food, BMs but does get affected with position. Feels better laying prone. Had increased appetite which got better since starting the methimazole. In fact all of her abd sx are better now since tx of hypERthyroidism. Shes on mmi 10 and atenolol 25 daily. Follows with endocrine (Dr Orellana). Labs reviewed, slightly high ALP noted. Prev imaging neg for hepatobiliary abnl - US 09/2024 Increased gastric secretions noted with reflux - UGIS 12/2024 FORMERLY [facility], [facility] Medical History Graves disease Surgical History H/O right inguinal hernia repair History of appendectomy Family History Mother Diabetes Seizure disorder Son No problems noted. Son Autism Daughter No problems noted. Brother No problems noted. Social History Household Members: Family Housing: Apartment Alcohol intake: current Alcohol intake frequency: a few times a week Alcohol type: wine Patient Tobacco Use Status: Never used Tobacco e-Cigarette/Vaping Use: Never Used Second Hand Smoke Exposure: No Current occupational status: employed Cognitive needs: No Hearing needs: No Vision needs: No Female Reproductive History Menstrual Age of Menarche: 13 Review of Systems Const All systems reviewed & are unremarkable except as noted in HPI and below Physical Exam Vital Signs: Last Vital Signs Pulse 83 02/11/25 14:03 BP 113/49 L 02/11/25 14:03 BMI result Body Mass Index 24.5 No apparent distress b/l exophthalmos Nonicteric Abdomen soft, nondistended Alert and oriented x3, normal gait Assessment & Plan Assessment & Plan (1) Epigastric pain: Code(s): R10.13 - Epigastric pain Category: Medical (2) Graves disease: Code(s): E05.00 - Thyrotoxicosis with diffuse goiter without thyrotoxic crisis or storm Category: Medical (3) Hyperthyroidism: Code(s): E05.90 - Thyrotoxicosis, unspecified without thyrotoxic crisis or storm Category: Medical Plan Reviewed with the pt that while typically abd pain not a hallmark of hypERthyroidism this can occur alongside N,V in some cases. Response to methimazole serves as diagnostic and therapeutic confirmation. Will complete work up by r/o celiac. No accompanying diarrhea to suspect IBD at this time. Plan: - famotidine 40 daily at night - celiac serology - Mgmt of thyrotoxicosis as per endocrine - EGD if sx persist despite euthyroidism Follow up 3 months Orders: Orders Immunoglobulin A Today R10.13 - Epigastric pain Transglutaminase IgA Today R10.13 - Epigastric pain Immunoglobulin G Today R10.13 - Epigastric pain Medications: New famotidine 40 mg PO BEDTIME 90 tabs 1RF Coding Level of Care Code New Pt Level 4 (02038) Diagnoses Epigastric pain R10.13 Graves disease E05.00 Hyperthyroidism E05.90
[2025-02-11 14:03] VITALS: BP 113/49; PULSE 83; BMI 24.5
== END 2025-02-11 14:31 | disposition home or self-care (01) ==
PROVIDERS: Visit Provider Internal Medicine
DX: R10.13 Epigastric pain (principal); E05.00 Thyrotoxicosis with diffuse goiter without thyrotoxic crisis or storm; E05.90 Thyrotoxicosis, unspecified without thyrotoxic crisis or storm
CPT/HCPCS: 99204

== ENCOUNTER 2025-05-07 08:30 | Outpatient (AMB) | payer BC, MEDICAID, SELFPAY ==
--- NOTE | 2025-05-07 08:32 | MHC.PC.OV ---
Vital Signs 05/07/25 08:33 Height 5 ft 6 in Weight 158 lb 2 oz BMI 25.5 BP 104/70 Blood Pressure Location Lt brachial Position Sitting Pulse 73 Pulse Source Pulse Oximeter Temp 97.1 F Temp Source Temporal Artery Scan Pulse Oximetry (%) 98 Oxygen Delivery Method Room Air Intake Visit Reasons: PE Allergies No Known Allergies Allergy (Verified 05/07/25 08:37) Medication List - Last Reconciled 05/07/25 by Chantal Cardona PA-C albuterol sulfate 90 mcg/actuation 2 puffs inhalation Q4-6H PRN atenolol 25 mg PO DAILY cholecalciferol (vitamin D3) 25 mcg PO DAILY famotidine 40 mg PO BEDTIME ferrous sulfate 325 mg PO DAILY folic acid 1 mg PO DAILY methimazole 10 mg PO DAILY norethindrone (contraceptive) 0.35 mg PO DAILY ondansetron 4 mg PO Q8H PRN Tobacco use date assessed: 05/07/25 Dental Screening Dental Screen Date: 05/07/25 Did you have a dental visit in the last 12 months?: Yes Did you have a dental problem in the last 6 months where you did not have access to dental care?: No Was dental information given to patient?: Patient has dentist HPI PE HPI Details 44-year-old female with past medical history of asthma, anxiety, and depression last seen 09/2024 coming in for annual exam. In review of the notes she and her annual eye exam 03/2025 advised to follow up in 1 year. She was seen by GI 01/2025 plan to start on famotidine 40 mg at night and workup for celiac and follow up in 3 months. Seen by endocrinology 01/2025 plan to continue with the methimazole and adjust the dose as needed, atenolol was decreased and advised to follow up in 3 months. Presenting with a routine physical examination. Graves' disease diagnosed by an flyer builder, currently managed with methimazole. The patient reports weight gain as a side effect of the medication. She is on the highest dose and is scheduled to see the flyer builder for a possible dose adjustment. 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 She denies any new allergies or medications for anxiety but expresses interest in starting treatment. The anxiety is noted to interfere with her sleep rather than being caused by sleep issues. Mammogram: 08/2024 Eye exam: 03/2025 Pap smear: 03/2024 Vaccinations: Up-to-date FORMERLY [facility] Medical History Graves disease Surgical History H/O right inguinal hernia repair History of appendectomy Family History Mother Diabetes Seizure disorder Son No problems noted. Son Autism Daughter No problems noted. Brother No problems noted. Social History Household Members: Family Housing: Apartment Alcohol intake: current Alcohol intake frequency: a few times a week Alcohol type: wine Patient Tobacco Use Status: Never used Tobacco e-Cigarette/Vaping Use: Never Used Second Hand Smoke Exposure: No Current occupational status: employed Cognitive needs: No Hearing needs: No Vision needs: No Female Reproductive History Menstrual Age of Menarche: 13 Questionnaire PHQ-9 Over the last 2 weeks, how often have you been bothered by any of the following problems? 1. Little interest or pleasure in doing things: not at all 2. Feeling down, depressed, or hopeless: not at all 3. Trouble falling or staying asleep, or sleeping too much: not at all 4. Feeling tired or having little energy: not at all 5. Poor appetite or overeating: not at all 6. Feeling bad about yourself - or that you are a failure or have let yourself or your family down: not at all 7. Trouble concentrating on things, such as reading the newspaper or watching television: not at all 8. Moving or speaking so slowly that other people could have noticed. Or the opposite - being so fidgety or restless that you have been moving around a lot more than usual: not at all 9. Thoughts that you would be better off or of hurting yourself in some way: not at all Total score: 0 Depression Screening Interpretation: Negative Depression Screening Done: Yes 42676 - PHQ-9 Billing: Yes Source: Developed by Drs. Trevin L. RanulfoRani walton, Galdino Hughes and colleagues, with an educational naina from [employer]. Thrive Questionnaire Date Thrive assessed: 05/03/25 I am a: Patient What is your living situation today?: I have a steady place to live Within the past 12 months, did the food you bought not last and you didn't have the money to get more?: Never true Within the past 12 months, did you worry whether your food would run out before you got money to buy more?: Never true Do you have trouble paying for medicines?: No Do you have trouble getting transportation to medical appointments?: No Do you have trouble paying your heating and electricity bill?: No Do you have trouble taking care of your child, family member or friend?: No Do you have trouble with day-to-day activities such as bathing, preparing meals, shopping, managing finances, etc.?: No Are you currently unemployed and looking for a job?: No Are you interested in more education?: No Please select the resources that you would like help with: None Currently or been in a relationship where the following occur: No concerns reported THRIVE Score: 0 AUDIT C Alcohol Use Questionnaire (AUDIT-C) 1. How often do you have a drink containing alcohol?: 2-4 times a month 2. How many drinks containing alcohol do you have on a typical day when you are drinking?: 1 or 2 3. How often do you have six or more drinks on one occasion?: Never Total Score: 2 RICHARDSON-7 AMB Questionnaire RICHARDSON-7 Date RICHARDSON - 7 assessed: 10/08/24 Feeling nervous, anxious, or on edge: 3 = Nearly every day Not being able to stop or control worryin = More than half the days Worrying too much about different things: 2 = More than half the days Trouble relaxin = More than half the days Being so restless that it is hard to sit still: 0 = Not at all Becoming easily annoyed or irritable: 2 = More than half the days Feeling afraid as if something awful might happen: 1 = Several days Total RICHARDSON-7 score (0-4 normal; 5-9 mild; 10-14 moderate; 15-21 severe): 12 Source: Developed by Rani Morel Kurt Kroenke and colleagues, with an educational naina from [employer]. RICHARDSON-7 Assessment Billing RICHARDSON-7 Assessment Tool: RICHARDSON-7 Assessment 66117 Review of Systems Const Denies body aches, Denies chills, Denies fever(s), Denies headache(s) and Denies poor appetite Eyes Reports no additional complaints ENT Denies dysphagia, Denies dizziness, Denies headache(s) and Denies odynophagia Card Denies chest pain, Denies syncope, Denies edema, Denies irregular heart rhythm, Denies lightheadedness and Denies dyspnea Resp Denies cough and Denies dyspnea GI Denies abdominal pain, Denies constipation, Denies dysphagia, Denies diarrhea, Denies nausea, Denies odynophagia and Denies vomiting Reports no additional complaints Musc Reports no additional complaints and Denies abnormal gait Skin/Breast Reports system reviewed and no additional complaints, except as documented Neuro Denies abnormal gait, Denies dizziness, Denies syncope and Denies headache(s) Psych Reports no additional complaints Physical exam (Primary Care) Vital Signs: Last Vital Signs Temp 97.1 F 05/07/25 08:33 Pulse 73 05/07/25 08:33 BP 104/70 05/07/25 08:33 Pulse Ox 98 05/07/25 08:33 Oxygen Delivery Method Room Air 05/07/25 08:33 BMI result Body Mass Index 25.5 Tobacco/Smoking Status: Tobacco use Status Tobacco use date assessed 05/07/25 05/07/25 08:36 Patient Tobacco Use Status Never used Tobacco 05/07/25 08:36 e-Cigarette/Vaping Use Never Used 05/07/25 08:36 PHQ-9: PHQ-9 Score PHQ-9: Total score 0 05/07/25 08:36 Depression Screening Interpretation: Negative Thrive Assessment: Date of Thrive Assessment Date Thrive assessed 05/03/25 05/07/25 08:36 Currently or been in a relationship where the following occur: No concerns reported Const General: cooperative, healthy appearing, comfortable and no acute distress Orientation/consciousness: patient oriented x3 HENMT Head: Yes normocephalic Ears: hearing grossly normal bilaterally, external ears normal, TM's normal bilaterally and EAC's normal General nose exam: Normal external nose present Face and sinus: Yes normal facial exam and Yes sinuses nontender Mouth: Normal oral and palatal mucosa present and tongue normal Throat: Yes posterior oropharynx normal Eyes General: appearance normal, both eyes and all related structures Conjunctivae: conjunctivae normal Pupils: Equal, round and reactive pupils present EOM: EOMs intact bilaterally and No Nystagmus present Neck Neck: Yes normal visual inspection, Yes full ROM and Yes no lymphadenopathy Chest Chest palpation & inspection: normal inspection of the chest Resp Effort & Inspection: normal respiratory effort Auscultation: clear to auscultation bilaterally, no crackles, no rales, no rhonchi, no wheezes and breath sounds present Cardio Rate: regular rate Rhythm: regular rhythm Peripheral pulses: radial pulses present and dorsalis pedis present GI Inspection: Yes normal to inspection and No Abdominal wall edema Palpation (GI): Soft to palpation, not firm and nontender Auscultation: normal bowel sounds Rectal Exam - Female: deferred General: Yes no CVA tenderness Back/Spine/Pelvis Back: no CVA tenderness Skin General skin exam: no rashes or lesions noted Neuro General: patient oriented x3 Cranial nerves: Yes Equal, round and reactive pupils present, Yes Midline tongue present, Yes Ability to bilaterally elevate shoulders present and No Nystagmus present Gait exam (Neuro): Normal gait present Extrem General: Yes normal to inspection, Yes full ROM, No no pedal edema and No edema Psych Speech and movement: Normal speech and movement present Affect: normal affect Insight: Good insight present (Psych) Judgement: Good judgement present (Psych) Coding Level of Care Code Est Pt Prev Care 40-64y(77452) Diagnoses Annual physical exam Z00.00 Graves disease E05.00 Cervical cancer screening Z12.4 Asthma J45.909 Anemia D64.9 Anemia type: unspecified type Anxiety F41.9 Additional Codes PHQ-9 - 03298 - PHQ-9 Billing: Yes ([id number]) RICHARDSON-7 Assessment Billing - RICHARDSON-7 Assessment Tool: RICHARDSON-7 Assessment 73008 ([id number]) Assessment & Plan Assessment & Plan (1) Annual physical exam: Code(s): Z00.00 - Encounter for general adult medical examination without abnormal findings Category: Medical Plan: Patient is up-to-date on all recommended routine screenings and vaccinations for her age. Blood work is up-to-date and has been reviewed with the patient today. Healthy diet and regular exercise is encouraged. (2) Graves disease: Code(s): E05.00 - Thyrotoxicosis with diffuse goiter without thyrotoxic crisis or storm Category: Medical Plan: Continue to follow with endocrinology at this time. She is on atenolol every 2-3 days as needed for palpitations. She is also on methimazole and has a appointment with endocrinology on Sunday to discuss further management. Continue to follow up with endocrinology (3) Cervical cancer screening: Comment: 04/05/2024 Pap is negative with negative HPV. Code(s): Z12.4 - Encounter for screening for malignant neoplasm of cervix Category: Medical Plan: Up-to-date on Pap smears and she will continue to follow with gynecology. (4) Asthma: Code(s): J45.909 - Unspecified asthma, uncomplicated Category: Medical Plan: Asthma currently controlled on present medications. Continue on albuterol as needed. Avoid triggers such as allergies. (5) Anemia: Code(s): D64.9 - Anemia, unspecified Category: Medical Qualifiers: Anemia type: unspecified type Qualified Code(s): D64.9 - Anemia, unspecified Plan: Continue to monitor blood work. (6) Anxiety: Code(s): F41.9 - Anxiety disorder, unspecified Category: Medical Plan: Patient reporting anxiety that is interfering with her sleep and daily life. She states her anxiety has been worsened by her recent life circumstances having to serve on [employer]. Plan to start on sertraline 25 mg for anxiety and follow up in 2 months to ensure efficacy. She agrees to reach out in the meantime if she has side effects of this medication Plan The patient will continue with methimazole for the management of Graves' disease and will follow up with the flyer builder to assess the possibility of dose adjustment due to weight gain as a side effect. For anxiety management, the patient will start sertraline at a low dose of 25 mg, with a plan to reassess in two months. If effective, the dose may be maintained; otherwise, it may be increased to 50 mg. The patient is advised to monitor for side effects such as nausea and to report any persistent issues. Asthma management will continue with albuterol as needed, with attention to triggers such as illness and stress. Preventative care includes scheduling a mammogram in August and maintaining regular follow-ups for health maintenance. This note was constructed using voice recognition software. While every effort has been made to ensure accuracy and overhead crane truck loader, still areas may have been included sometimes these areas may affect the content or meeting of the given symptoms. Total time spent caring for the patient today was thirty minutes. This includes time spent before the visit reviewing the chart, time spent during the visit, and time spent after the visit and documentation. Patient was informed and verbally consented to the use of an ambient scribe for clinic note documentation during this visit. Medications: New sertraline 25 mg PO DAILY 90 tabs 0RF
[2025-05-07 08:33] VITALS: BP 104/70; PULSE 73; TEMP 36.2; O2SAT 98; BMI 25.5
== END 2025-05-07 09:03 | disposition home or self-care (01) ==
LOC: HO.HMCH 08:30
DX: Z00.00 Encounter for general adult medical examination without abnormal findings (principal); E05.00 Thyrotoxicosis with diffuse goiter without thyrotoxic crisis or storm; Z12.4 Encounter for screening for malignant neoplasm of cervix; J45.909 Unspecified asthma, uncomplicated; D64.9 Anemia, unspecified; F41.9 Anxiety disorder, unspecified

== ENCOUNTER 2025-05-07 08:30 | Outpatient (REF) | payer BC, MEDICAID, SELFPAY ==
[2025-05-07 10:58] LABS: Alanine Aminotransferase 13 U/L (0-31); Albumin Level 4.2 g/dL (3.5-5.0); Alkaline Phosphatase 136 U/L (39-117); Aspartate Amino Transferase 18 U/L (5-31); Total Protein 6.9 g/dL (6.5-8.0)
[2025-05-07 11:02] LABS: Free T4 (Free Thyroxine) 1.72 ng/dL (0.71-1.85); Thyroid Stimulating Hormone < 0.01 uIU/mL (0.32-4.0)
== END 2025-05-07 08:31 | disposition home or self-care (01) ==
LOC: HO.LAB 08:30
PROVIDERS: Absent Provider Student in an Organized Health Care Education/Training Program
DX: Z00.00 Encounter for general adult medical examination without abnormal findings (principal); E05.00 Thyrotoxicosis with diffuse goiter without thyrotoxic crisis or storm; Z12.4 Encounter for screening for malignant neoplasm of cervix; J45.909 Unspecified asthma, uncomplicated; D64.9 Anemia, unspecified; F41.9 Anxiety disorder, unspecified
CPT/HCPCS: 36415; 80076; 84439; 84443; 84480; 96127

== ENCOUNTER 2025-05-11 08:21 | Outpatient (AMB) | payer BC, MEDICAID, SELFPAY ==
[2025-05-11 08:29] VITALS: BP 126/78; PULSE 87; O2SAT 99; BMI 26.2
--- NOTE | 2025-05-11 08:29 | MHC.OFFVIS ---
Vital Signs 05/11/25 08:29 Height 5 ft 6 in Weight 162 lb 0.636 oz BMI 26.2 BP 126/78 Blood Pressure Location Lt brachial Position Sitting Pulse 87 Pulse Source Pulse Oximeter Pulse Oximetry (%) 99 Oxygen Delivery Method Room Air Intake Visit Reasons: Thyrotoxicosis, unspec w/o thyrotoxic crisis/storm Intake Note: Patient present today for Thyrotoxicosis, unspecified w/o thyrotoxic crisis/storm. 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 Accompanied by: Self / Same As Patient Allergies No Known Allergies Allergy (Verified 05/11/25 08:32) Medication List - Last Reconciled 05/11/25 by Francisca Orellana MD albuterol sulfate 90 mcg/actuation 2 puffs inhalation Q4-6H PRN atenolol 25 mg PO DAILY cholecalciferol (vitamin D3) 25 mcg PO DAILY famotidine 40 mg PO BEDTIME ferrous sulfate 325 mg PO DAILY folic acid 1 mg PO DAILY methimazole 10 mg PO DAILY norethindrone (contraceptive) 0.35 mg PO DAILY ondansetron 4 mg PO Q8H PRN sertraline 25 mg PO DAILY HPI Comments Details: 44-year-old female here today for follow up of hyperthyroidism secondary to Graves disease. Was complaining of shakiness , hot flashes , abd pain which promted the blood work. Labs from 10/10/2024 showed TSH suppressed, free T4 elevated at 3.56. Labs repeated 11/04/2024 again showed TSH was low at 0.01, free T4 elevated at 3.45, free T3 elevated to greater than 20, TSI antibodies elevated at 316, TPO antibodies elevated at 719 and TSH receptor antibody elevated at 25.1. Ultrasound of the thyroid done 12/08/2024 showed heterogenous gland with increased vascularity. Palpitation when laying down in bed since Sep 2024, intermittent. Shakiness overall. Hot flashes daily. Feels weak, intermittent fatigue. No diarrhea or constipation .LMP: 12/17/24 , monthly. Sexually active. using condoms. ?Having intermittent eye pain around the orbit. No teariness. Intermittent blurriness. No redness. Feels eye have become more prominent in a few months. Reports increased anxiety. Lost 20 lbs since Sep No preceding viral infection. No contrast exposure. Patient denies any difficulty swallowing, pain on swallowing or voice changes . Does have feeling of fullness in the neck. Feels winded with movement . Patient denies any history of childhood neck radiation. Denies having ever used lithium, amiodarone or biotin supplements. Patient denies any family history of thyroid cancer. Maternal aunt has thyroid disease. 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 Overall resolved symptoms including hot flashes, tiredness Anxiety worsened , PCP started sertraline palpitations once or twice a week She has gained 10 lb since January 2025. Saw Dr. Oscar in March 2025, plan for fup in 1 year Physical exam General: sitting comfortably in no acute distress HEENT: normocephalic/atraumatic, exophthalmos noted Neck: supple, enlarged thyroid gland palpable Cardiac: normal heart sounds, tachycardic Pulm: normal breath sounds B/L, no added breath sounds Abd: not distended, no tenderness Extremities: no edema, no signs of myxedema Laboratory Tests 05/04/23 10/10/24 11/04/24 07:21 08:48 07:35 TSH 1.49 < 0.01 L 0.01 L Free T4 3.56 H 3.45 H Free T3 >20.0 H Reverse T3 82 H Thyroid Stim Immunoglob 316 H Thyroid Peroxidase Ab 719 H TSH Receptor Ab 25.11 H Laboratory Tests 12/19/24 12/26/24 11:55 11:06 TSH 0.01 L 0.01 L Free T4 3.41 H 1.78 Total T3 481 H Laboratory Tests 12/26/24 02/06/25 05/07/25 11:06 11:17 09:30 AST 19 18 ALT 12 13 Alkaline Phosphatase 130 H 136 H TSH 0.01 L 0.01 L < 0.01 L Free T4 1.78 1.71 1.72 Total T3 270 H 220 H EXAMINATION: US THYROID 12/08/24 HISTORY: E05.90 - Thyrotoxicosis, unspecified without thyrotoxic crisis or storm TECHNIQUE: Real-time grayscale ultrasound imaging was performed and images were reviewed. COMPARISON: There are no prior studies for comparison. FINDINGS: SIZE: The right thyroid lobe measures 6.1 x 2.7 x 2.4 cm. The left thyroid lobe measures 5.7 x 2.2 x 2.5 cm. The isthmus measures 6 mm. FLOW: Flow to the gland is increased. ECHOGENICITY: The echotexture of the gland is heterogeneous. NODULES: No discrete nodules are identified. [facility] Medical History Graves disease Surgical History H/O right inguinal hernia repair History of appendectomy Family History Mother Diabetes Seizure disorder Son No problems noted. Son Autism Daughter No problems noted. Brother No problems noted. Social History Household Members: Family Housing: Apartment Alcohol intake: current Alcohol intake frequency: a few times a week Alcohol type: wine Patient Tobacco Use Status: Never used Tobacco e-Cigarette/Vaping Use: Never Used Second Hand Smoke Exposure: No Current occupational status: employed Cognitive needs: No Hearing needs: No Vision needs: No Female Reproductive History Menstrual Age of Menarche: 13 Physical Exam Vital Signs: Last Vital Signs Pulse 87 05/11/25 08:29 BP 126/78 05/11/25 08:29 Pulse Ox 99 05/11/25 08:29 Oxygen Delivery Method Room Air 05/11/25 08:29 BMI result Body Mass Index 26.2 Assessment & Plan Assessment & Plan (1) Hyperthyroidism: Code(s): E05.90 - Thyrotoxicosis, unspecified without thyrotoxic crisis or storm Category: Medical Plan: 44-year-old female coming in today for fup of hyperthyroidism in the setting of Graves disease. Labs from 10/10/2024 showed TSH suppressed, free T4 elevated at 3.56. Labs repeated 11/04/2024 again showed TSH was low at 0.01, free T4 elevated at 3.45, free T3 elevated to greater than 20, TSI antibodies elevated at 316, TPO antibodies elevated at 719 and TSH receptor antibody elevated at 25.1. Ultrasound of the thyroid done 12/08/2024 showed heterogenous gland with increased vascularity. Labs consistent with Graves disease. 12/19/2024: Started on methimazole 10 mg daily as well as atenolol 25 mg daily. Now on atenolol as needed and methimazole 10 mg daily. Most recent blood work 05/07/2025 TSH still suppressed, free T4 normal at 1.72, total T3 still elevated but improved at 220 Alkaline phosphatase level stable even though mildly elevated at 136, otherwise normal AST and ALT. At this point I am going to go up on the methimazole. Her total T3 remains elevated plus on my exam she is somewhat anxious appearing and also reports increased anxiety and still has some palpitations here and there. Patient is currently sexually active but uses condoms. Discussed teratogenic effects of methimazole and atenolol and discussed importance of contraception. Discussed with patient that about 30% of the patients have remission after 12-18 months of treatment with methimazole. More recent data has shown longer periods of treatment resulting in better remission rates as well. At this time we will plan to continue treatment with methimazole and continue adjusting the dose as needed. In the long run if she does not have remission, we also briefly discussed definitive therapy options of radioactive iodine ablation and total thyroidectomy and the need for requiring long-term levothyroxine therapy after those procedures. The following were discussed as potential side effects of methimazole: - Serious skin rashes - nausea, vomiting, or severe hepatic injury - Agranulocytosis: a rare side effect of methimazole involves a severe decrease in the production of white blood cells. This condition is extremely serious, but affects only one out of every 200 to 500 people who take an antithyroid drug. Agranulocytosis more commonly occurs within the first three months of starting treatment with an antithyroid drug, but can occur at any time. If patient develops a fever (temperature above 100.5F), or other signs or symptoms of infection, she should stop taking the tapazole and immediately have a complete blood count (CBC) done. Serious and potentially life threatening infections, or even , can occur before agranulocytosis resolves. However, once the antithyroid drug is stopped, agranulocytosis usually resolves within a week. - Arthralgias, myalgias - Renal: Nephritis - Fever Patient will stop medication and call our office if these occur. Patient also has eye symptoms concerning for Graves orbitopathy. She was seen by ophthalmology in March 2025, thought to have mild eye symptoms with plan for follow up in 1 year. Plan: -increase methimazole to 10 mg in a.m. and 5 mg (half a tablet) in p.m. -do TSH, free T4, total T3 in 8 weeks prior to follow up in 9 weeks Continue atenolol 25 mg daily as needed (2) Graves disease: Code(s): E05.00 - Thyrotoxicosis with diffuse goiter without thyrotoxic crisis or storm Category: Medical Plan: See above Plan I spent 30 minutes in reviewing the record, seeing the patient and documenting in the medical record. Orders: Orders Thyroid Stimulating Hormone 8 Weeks E05.00 - Thyrotoxicosis with diffuse goiter without thyrotoxic crisis or storm, E05.90 - Thyrotoxicosis, unspecified without thyrotoxic crisis or storm Free T4 (Free Thyroxine) 8 Weeks E05.00 - Thyrotoxicosis with diffuse goiter without thyrotoxic crisis or storm, E05.90 - Thyrotoxicosis, unspecified without thyrotoxic crisis or storm Triiodothyronine T3 Total 8 Weeks E05.00 - Thyrotoxicosis with diffuse goiter without thyrotoxic crisis or storm, E05.90 - Thyrotoxicosis, unspecified without thyrotoxic crisis or storm Medications: Changed From methimazole 10 mg PO DAILY 90 tabs 1RF To methimazole orally daily; take 1 tablet in AM and half tablet in PM 45 tabs 6RF Patient Instructions: Increase methimazole to 1 tablet ( 10 mg) daily in AM and half tablet (5 mg ) in evening Repeat blood work in 8 weeks , please make sure this is done a week before your next visit with me The following were discussed as potential side effects of methimazole: - Serious skin rashes - nausea, vomiting, or severe hepatic injury - Agranulocytosis: a rare side effect of methimazole involves a severe decrease in the production of white blood cells. This condition is extremely serious, but affects only one out of every 200 to 500 people who take an antithyroid drug. Agranulocytosis more commonly occurs within the first three months of starting treatment with an antithyroid drug, but can occur at any time. If patient develops a fever (temperature above 100.5F), or other signs or symptoms of infection, she should stop taking the tapazole and immediately have a complete blood count (CBC) done. Serious and potentially life threatening infections, or even , can occur before agranulocytosis resolves. However, once the antithyroid drug is stopped, agranulocytosis usually resolves within a week. - Arthralgias, myalgias - Renal: Nephritis - Fever Patient will stop medication and call our office if these occur. Coding Level of Care Code Est Pt Level 4 (21304) Diagnoses Hyperthyroidism E05.90 Graves disease E05.00 Time Spent (min) 30
== END 2025-05-11 08:47 | disposition home or self-care (01) ==
LOC: HO.ENCR 08:21
PROVIDERS: Visit Provider Student in an Organized Health Care Education/Training Program
DX: E05.90 Thyrotoxicosis, unspecified without thyrotoxic crisis or storm (principal); E05.00 Thyrotoxicosis with diffuse goiter without thyrotoxic crisis or storm
CPT/HCPCS: 99214

== ENCOUNTER 2025-07-07 07:46 | Outpatient (REF) | payer BC, MEDICAID, SELFPAY ==
[2025-07-07 08:52] LABS: Free T4 (Free Thyroxine) 0.93 ng/dL (0.71-1.85); Thyroid Stimulating Hormone 0.01 uIU/mL (0.32-4.0)
== END 2025-07-07 07:47 | disposition home or self-care (01) ==
LOC: HO.LAB 07:46
PROVIDERS: Visit Provider Student in an Organized Health Care Education/Training Program
DX: E05.00 Thyrotoxicosis with diffuse goiter without thyrotoxic crisis or storm (principal)
CPT/HCPCS: 36415; 84439; 84443; 84480

== ENCOUNTER 2025-08-03 15:24 | Outpatient (AMB) | payer BC, MEDICAID, SELFPAY ==
[2025-08-03 15:29] VITALS: BP 126/72; PULSE 81; RESP 18; TEMP 36.4; O2SAT 98; BMI 26.4
--- NOTE | 2025-08-03 15:29 | A.OFFPC_ITS ---
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 by: Self / Same As Patient Allergies No Known Allergies Allergy (Verified 05/11/25 08:32) Medication List - Last Reconciled 08/03/25 by Kenneth Rangel MD albuterol sulfate 90 mcg/actuation 2 puffs inhalation Q4-6H PRN cholecalciferol (vitamin D3) 25 mcg PO DAILY famotidine 40 mg PO BEDTIME ferrous sulfate 325 mg PO DAILY folic acid 1 mg PO DAILY methimazole orally daily; take 1 tablet in AM and half tablet in PM norethindrone (contraceptive) 0.35 mg PO DAILY sertraline 25 mg PO DAILY Tobacco use date assessed: 08/03/25 Dental Screening Dental Screen Date: 08/03/25 Did you have a dental visit in the last 12 months?: No Did you have a dental problem in the last 6 months where you did not have access to dental care?: No Was dental information given to patient?: Patient has dentist HPI HPI Comments History of Present Illness Details The patient is a 44-year-old female presenting with worsening body pain and new onset of pleuritic chest pain and cough. She has been experiencing body aches for approximately two weeks, which have been progressively worsening. Today, she developed a cough, chest tightness, neck pain, and difficulty breathing. She also reports associated sneezing and facial congestion. She has tested negative for COVID-19 and influenza. For her symptoms, she has taken DayQuil, NyQuil, and ibuprofen, with some relief reported from NyQuil aiding her sleep. She denies any fever or chills. She has a history of asthma, which tends to become more active when she is ill. [facility] Medical History Graves disease Surgical History H/O right inguinal hernia repair History of appendectomy Family History Mother Diabetes Seizure disorder Son No problems noted. Son Autism Daughter No problems noted. Brother No problems noted. Social History Household Members: Family Housing: Apartment Alcohol intake: current Alcohol intake frequency: a few times a week Alcohol type: wine Patient Tobacco Use Status: Never used Tobacco e-Cigarette/Vaping Use: Never Used Second Hand Smoke Exposure: No Current occupational status: employed Cognitive needs: No Hearing needs: No Vision needs: No Female Reproductive History Menstrual Age of Menarche: 13 Questionnaire Thrive Questionnaire Date Thrive assessed: 05/03/25 I am a: Patient What is your living situation today?: I have a steady place to live Within the past 12 months, did the food you bought not last and you didn't have the money to get more?: Never true Within the past 12 months, did you worry whether your food would run out before you got money to buy more?: Never true Do you have trouble paying for medicines?: No Do you have trouble getting transportation to medical appointments?: No Do you have trouble paying your heating and electricity bill?: No Do you have trouble taking care of your child, family member or friend?: No Do you have trouble with day-to-day activities such as bathing, preparing meals, shopping, managing finances, etc.?: No Are you currently unemployed and looking for a job?: No Are you interested in more education?: No Please select the resources that you would like help with: None Currently or been in a relationship where the following occur: No concerns reported THRIVE Score: 0 RICHARDSON-7 AMB Questionnaire RICHARDSON-7 Date RICHARDSON - 7 assessed: 10/08/24 Source: Developed by Drs. Trevin Winchester, Rani Marcial, Galdino Hughes and colleagues, with an educational naina from [employer]. Review of Systems Const Details: As per HPI. Physical exam (Primary Care) Vital Signs: Last Vital Signs Temp 97.5 F 08/03/25 15:29 Pulse 81 08/03/25 15:29 Resp 18 08/03/25 15:29 BP 126/72 08/03/25 15:29 Pulse Ox 98 08/03/25 15:29 Oxygen Delivery Method Room Air 08/03/25 15:29 BMI result Body Mass Index 26.4 Tobacco/Smoking Status: Tobacco use Status Tobacco use date assessed 08/03/25 08/03/25 15:38 Patient Tobacco Use Status Never used Tobacco 08/03/25 15:38 e-Cigarette/Vaping Use Never Used 08/03/25 15:38 Thrive Assessment: Date of Thrive Assessment Date Thrive assessed 05/03/25 08/03/25 15:38 Currently or been in a relationship where the following occur: No concerns reported Const Other: Pertinent findings are in BOLD GENERAL APPEARANCE NAD, activity normal for age, well developed/ well nourished, no cyanosis, pallor, or diaphoresis. EYES lids/conjunctiva normal. EARS/NOSE/THROAT Mucous membranes moist, nares normal, lips/teeth normal uvula midline without oral pharyngeal erythema, exudate or swelling TMs normal bilaterally. No lymphangitis/lymphedema. HEAD/NECK normocephalic atraumatic, no facial trauma, neck is supple. Enlarged thyroid. RESPIRATORY respiratory effort normal, speaks in full sentences, no tripod position, no accessory muscle use. Lungs clear to auscultation without rhonchi, wheezes, rales CARDIAC Regular rate and rhythm, no edema. ABDOMINAL Soft, ND/NT. No evidence of fluid wave. No pulsatile masses on exam, rebound tenderness, Escobedo sign or pain over Mcburney's point. MUSCLES/EXTREMITIES No abnormal range of motion, no swelling. SKIN Warm, pink and dry. No rashes, dermatoses, petechiae or lesions. NEUROLOGICAL Speech is clear and appropriate. Normal level of consciousness. Gait and coordination are normal. 5/5 strength in all extremities. PSYCH Normal mood and affect. Judgement/competence is appropriate Coding Level of Care Code Est Pt Level 3 (29352) Diagnoses Congestion of upper airway J98.8 Time Spent (min) 20 Assessment & Plan Assessment & Plan (1) Congestion of upper airway: Code(s): J98.8 - Other specified respiratory disorders Category: Medical Plan: - The patient's symptoms of body aches, cough, chest tightness, sneezing, and congestion are consistent with a viral infection with flu-like symptoms, despite negative flu and COVID-19 tests. - The physical exam did not reveal any concerning findings, and her vitals are good. - Continue DayQuil and NyQuil for symptomatic relief. - Prescribed azithromycin 250 mg for its anti-inflammatory effects; the patient will take 2 pills on day one, followed by 1 pill daily for the next 3 days. - If symptoms do not improve, the patient is advised to call the clinic or schedule another appointment. Plan I explained to the patient that her symptoms appear to be from a viral infection, presenting as flu-like symptoms. I reassured her that there were no worrisome signs on her physical exam and that her vital signs were good, indicating she is not severely ill. I have prescribed a course of azithromycin, explaining that while it is a mild antibiotic, the primary purpose is for its anti-inflammatory effects. I instructed her to take two 250 mg pills on the first day, then one pill daily for the remaining course. I advised her to continue using DayQuil and NyQuil for symptomatic relief. I advised her to follow up by calling the clinic or scheduling another appointment if her condition does not improve. Medications: New azithromycin 250 mg PO DAILY 5 tabs 0RF 5 days
== END 2025-08-03 16:15 | disposition home or self-care (01) ==
LOC: HO.HMCH 15:24
PROVIDERS: Visit Provider Internal Medicine
DX: J98.8 Other specified respiratory disorders (principal)

== ENCOUNTER 2025-08-20 09:00 | Outpatient (AMB) | payer BC, MEDICAID, SELFPAY ==
--- NOTE | 2025-08-20 09:01 | MHC.PC.OV ---
Intake Visit Reasons: f/u anxiety tele Intake Note: Patient is here to follow up on Anxiety. Anaesthesiologist Required: No Acquisition Cost Estimator: Not Required per policy Accompanied by: Self / Same As Patient Allergies No Known Allergies Allergy (Verified 08/20/25 09:10) Medication List - Last Reconciled 08/20/25 by Chantal Cardona PA-C albuterol sulfate 90 mcg/actuation 2 puffs inhalation Q4-6H PRN cholecalciferol (vitamin D3) 25 mcg PO DAILY famotidine 40 mg PO BEDTIME ferrous sulfate 325 mg PO DAILY folic acid 1 mg PO DAILY methimazole orally daily; take 1 tablet in AM and half tablet in PM norethindrone (contraceptive) 0.35 mg PO DAILY sertraline 25 mg PO DAILY Tobacco use date assessed: 08/03/25 Dental Screening Dental Screen Date: 08/03/25 HPI f/u anxiety tele HPI Details 44-year-old female with past medical history of asthma, anxiety, and depression last seen 04/2025 presenting via telehealth for follow up on anxiety. In review of the notes, patient was seen by endocrinology 04/2025 for hyperthyroidism started on methimazole daily and atenolol as needed and missed most recent and follow up. At her last visit she was started on sertraline 25 mg for anxiety. Patient tells us today she has not been taking the sertraline consistently but does find it as helpful for her anxiety. She typically experiences anxiety symptoms every 2-3 days and takes the sertraline as needed. I did encourage her to take the sertraline more consistently as this is the most effective way to use this medication. She has not followed up with endocrinology for an appointment. She has no other concerns today denies any side effects of the medications. [facility] Medical History Graves disease Surgical History H/O right inguinal hernia repair History of appendectomy Family History Mother Diabetes Seizure disorder Son No problems noted. Son Autism Daughter No problems noted. Brother No problems noted. Social History Household Members: Family Housing: Apartment Alcohol intake: current Alcohol intake frequency: a few times a week Alcohol type: wine Patient Tobacco Use Status: Never used Tobacco e-Cigarette/Vaping Use: Never Used Second Hand Smoke Exposure: No service: No Current occupational status: employed Cognitive needs: No Hearing needs: No Vision needs: No Female Reproductive History Menstrual Age of Menarche: 13 Questionnaire Thrive Questionnaire Date Thrive assessed: 05/03/25 RICHARDSON-7 AMB Questionnaire RICHARDSON-7 Date RICHARDSON - 7 assessed: 08/20/25 Feeling nervous, anxious, or on edge: 1 = Several days Not being able to stop or control worryin = More than half the days Worrying too much about different things: 2 = More than half the days Trouble relaxin = Nearly every day Being so restless that it is hard to sit still: 0 = Not at all Becoming easily annoyed or irritable: 3 = Nearly every day Feeling afraid as if something awful might happen: 0 = Not at all Total RICHARDSON-7 score (0-4 normal; 5-9 mild; 10-14 moderate; 15-21 severe): 11 Source: Developed by Drs. Trevin Winchester, Rani Marcial, Galdino Hughes and colleagues, with an educational naina from [employer]. Review of Systems Const Denies body aches, Denies chills, Denies fever(s), Denies headache(s) and Denies poor appetite Eyes Reports no additional complaints ENT Denies dizziness and Denies headache(s) Card Denies chest pain, Denies lightheadedness and Denies dyspnea Resp Denies dyspnea GI Denies abdominal pain, Denies nausea and Denies vomiting Reports no additional complaints Musc Reports no additional complaints and Denies abnormal gait Skin/Breast Reports system reviewed and no additional complaints, except as documented Neuro Denies abnormal gait, Denies dizziness and Denies headache(s) Psych Reports no additional complaints Physical exam (Primary Care) Vital Signs: Vital signs and physical exam not performed due to nature of telehealth visit Tobacco/Smoking Status: Tobacco use Status Tobacco use date assessed 08/03/25 08/20/25 09:04 Patient Tobacco Use Status Never used Tobacco 08/20/25 09:04 e-Cigarette/Vaping Use Never Used 08/20/25 09:04 Thrive Assessment: Date of Thrive Assessment Date Thrive assessed 05/03/25 08/20/25 09:04 Telehealth Telehealth Telehealth Platform: Telephone Location of provider rendering services: practice address Location of patient: address on file Patient Identification confirmed using: Name, : Yes Telehealth method: voice only Patient verbally consented to treatment: Yes Patient verbally consented to billing insurance company: Yes Patient informed of any privacy concerns related to visit: Yes Coding Level of Care Code Tele Est Pt Level 3 (47470) Diagnoses Anxiety F41.9 Graves disease E05.00 Assessment & Plan Assessment & Plan (1) Anxiety: Code(s): F41.9 - Anxiety disorder, unspecified Category: Medical Plan: Patient agrees to start taking sertraline on a daily basis instead of as needed as this is the most effective way to use this medication. She denies any side effects of the medication at this time. She will follow up at her annual physical or sooner as needed (2) Graves disease: Code(s): E05.00 - Thyrotoxicosis with diffuse goiter without thyrotoxic crisis or storm Category: Medical Plan: Encouraged to reschedule the appointment and she will continue on methimazole at this time. She agrees to reach out to the office to reschedule. Plan This note was constructed using voice recognition software. While every effort has been made to ensure accuracy and interface developer, still areas may have been included sometimes these areas may affect the content or meeting of the given symptoms. Total time spent caring for the patient today was twenty minutes. This includes time spent before the visit reviewing the chart, time spent during the visit, and time spent after the visit and documentation.
== END 2025-08-20 09:21 | disposition home or self-care (01) ==
LOC: HO.HMCH 09:00
DX: F41.9 Anxiety disorder, unspecified (principal); E05.00 Thyrotoxicosis with diffuse goiter without thyrotoxic crisis or storm

== ENCOUNTER 2025-08-31 08:15 | Outpatient (REF) | payer BC, MEDICAID, SELFPAY ==
--- NOTE | ~2025-08-31 | MM_ITS ---
EXAMINATION: MM SCREENING DIGITAL BREAST TOMOSYNTHESIS, BILATERAL CLINICAL INFORMATION: Screening. Asymptomatic. COMPARISON: Mammography: Comparison is made with available priors TECHNIQUE: Digital breast mammography with tomosynthesis is performed in both the craniocaudal and mediolateral oblique views along with computer-aided detection (CAD). FINDINGS: The breasts are extremely dense, which lowers the sensitivity of mammography. Bilateral circumscribed oval masses some were demonstrated to be simple cysts on prior ultrasounds. There are no significant masses, abnormal calcifications, or other abnormalities. MM/MM tomosynthesis screening BI IMPRESSION: No mammographic evidence of malignancy. ASSESSMENT: BI-RADS Category 2: Benign RECOMMENDATION: Routine annual mammography screening. 1 year F/U This examination should not preclude the clinical evaluation of a suspicious palpable abnormality. This patient's information was entered into a reminder system with a target due date for their next mammogram. Electronically signed by: Casie Rodriguez DO 09/02/2025 02:23 PM KADIE
== END 2025-08-31 08:16 | disposition home or self-care (01) ==
LOC: HO.MAMMO 08:15
DX: Z12.31 Encounter for screening mammogram for malignant neoplasm of breast (principal)
CPT/HCPCS: 77063; 77067

== ENCOUNTER → 2025-08-31 08:20 | Outpatient (BNV) | payer BC, MEDICAID, SELFPAY | PROVIDERS: Visit Provider Internal Medicine | DX: Z12.31 Encounter for screening mammogram for malignant neoplasm of breast (principal) | CPT/HCPCS: 77063; 77067 ==